=== PATIENT | male | born 1940 | race Caucasian/White ===

== ENCOUNTER 2024-12-18 09:16 | Inpatient (IN) | payer MEDICARE, SELFPAY ==
[2024-12-18] VITALS (34 sets, daily range): BP systolic 103–165; BP diastolic 78–109; PULSE 69–144; RESP 17–53; TEMP 35.7–37.3; O2SAT 82–98; BMI 26.6
[2024-12-18] MEDS: IPRAT-ALBUT 0.5-2.5 MG/3 ML NEB 1 NEB IH (09:40)
--- NOTE | 2024-12-18 09:52 | CRLHL7_ITS ---
For Patients: As a result of the Century Cures Act, medical imaging exams and procedure reports are released immediately into your electronic medical record. You may view this report before your referring provider. If you have questions, please contact your health care provider. INDICATION: Shortness of breath. Right-sided pain. TECHNIQUE: CT chest pulmonary angiogram acquired with 95 cc of Isovue 370 IV contrast. COMPARISON: CT chest, abdomen and pelvis 06/30/2019. FINDINGS: Within the limitations of motion artifact, there is no evidence of pulmonary embolus. Distal segmental and subsegmental pulmonary emboli not excluded based on this exam. Aortic atherosclerosis. Thoracic vasculature as imaged is otherwise unremarkable. Cardiomegaly and coronary artery calcifications, as before. New small right pleural effusion. No left pleural effusion or pericardial effusion. No pathologic lymphadenopathy. Soft tissues of the thoracic wall are unremarkable. No pneumothorax. Lower lobe bronchial wall thickening is similar. Emphysema with biapical pleural parenchymal scarring, as before. Bibasilar opacities, right greater than left have increased. Nodular opacities in the left lower lobar unchanged and likely infectious/inflammatory in nature. Stable right renal cyst. Visualized upper abdomen is otherwise unremarkable. Degenerative changes of the spine. No acute or suspicious osseous abnormality. IMPRESSION: 1. Within the limitations of motion artifact, there is no evidence of pulmonary embolus. Distal segmental and subsegmental pulmonary emboli not excluded based on this exam. 2. Bibasilar atelectasis or airspace disease, right greater than left has increased. New small right pleural effusion. 3. Emphysema with biapical pleural-parenchymal scarring, as before. Dictated by Kalyan Welsh MD @ 12/18/2024 11:53:56 AM Please note that all CT scans at this facility use dose modulation, iterative reconstruction, and/or weight-based dosing when appropriate to reduce radiation dose to as low as reasonably achievable. Dictated by: Kalyan Welsh MD @ 12/18/2024 11:54:13 (Electronically Signed)
--- NOTE | 2024-12-18 09:52 | CRLHL7_ITS ---
For Patients: As a result of the Century Cures Act, medical imaging exams and procedure reports are released immediately into your electronic medical record. You may view this report before your referring provider. If you have questions, please contact your health care provider. INDICATION: Shortness of breath. Right-sided abdominal pain. TECHNIQUE: CT abdomen and pelvis acquired with 95 cc of Isovue 370 IV contrast. COMPARISON: CT chest, abdomen and pelvis 06/30/2019. CT chest same day. FINDINGS: Lower chest: Please refer to chest CT same day. Liver: Unremarkable. Spleen: Unremarkable. Pancreas: Unremarkable. Gallbladder and bile ducts: No calcified stones or biliary ductal dilatation. Kidneys: Bilateral cysts have not significantly changed. No urolithiasis, hydronephrosis or suspicious lesion. Adrenal glands: Unremarkable. GI tract: Distal colonic diverticulosis without evidence of acute diverticulitis. GI tract is otherwise unremarkable. No free air or free fluid. Lymph nodes: No pathologic lymphadenopathy. Vascular structures: Atherosclerotic disease. No abdominal aortic aneurysm. Pelvic Organs: Unremarkable. Bones: No acute or suspicious osseous abnormality. Degenerative changes spine and pelvis. IMPRESSION: No acute intra-abdominal or pelvic abnormality. Dictated by Kalyan Welsh MD @ 12/18/2024 12:02:21 PM Please note that all CT scans at this facility use dose modulation, iterative reconstruction, and/or weight-based dosing when appropriate to reduce radiation dose to as low as reasonably achievable. Dictated by: Kalyan Welsh MD @ 12/18/2024 12:02:50 (Electronically Signed)
--- NOTE | 2024-12-18 10:08 | ED_ITS ---
HPI - SOB/Dyspnea General Date Seen: 12/18/24 Chief Complaint: Shortness of Breath/Dyspnea Stated Complaint: Shortness of breath, R side pain Time Seen by Provider: 12/18/24 09:29 Source: patient Mode of arrival: wheelchair Limitations: no limitations History of Present Illness HPI Narrative: Patient is an 83-year-old male presenting to the emergency department for shortness of breath and right-sided pain going from his right upper quadrant up to his right shoulder. He states he woke up with these symptoms I a.m.. Denies ever having symptoms like this before. States they have been consistent since then with no improvements. Did eat breakfast this morning without any issues. States he is completely asymptomatic yesterday. Feels like his most comfortable position is sitting up with his hands and his knees. Symptoms feel worse with lying back. Has not noticed any lower extremity swelling. Quit smoking over 20 years ago. Denies fevers, chills, sick contacts, chest pain, headache, lightheadedness, dizziness, diarrhea, constipation. No previous abdominal surgeries. No history of gallbladder disease. Has never had a blood clot before. Last saw his primary care provider around 2 years ago. Has never been started any medications other than occasional L appear in all when he gets gout in his right hand. Does currently have swelling and pain to his right hand which she states is better at this time compared to this morning but it does seem consistent with his previous gout. No further swelling or pain to the rest of his upper extremity. Related Data Home Medications ?Medication ?Instructions ?Recorded ?Confirmed No Known Home Medications 12/18/24 12/18/24 Allergies Allergy/AdvReac Type Severity Reaction Status Date / Time No Known Drug Allergies Allergy Verified 12/18/24 09:25 Review of Systems Status of ROS: Reports: 10 or more systems reviewed and unremarkable except as noted in History and below Exam Narrative: Exam Narrative: Const: Well-nourished, Well-developed, in moderate distress Eyes: PERRL, no conjunctival injection, and symmetrical lids HENT: Atraumatic external nose and ears. Moist mucous membranes. Neck: Symmetric, trachea midline, No thyromegaly. CVS: Tachycardia, No murmurs or gallops. Peripheral pulses 2+ and equal in all extremities RESP: Increased respiratory effort. Clear to auscultation bilaterally. GI: Nontender/Nondistended, No rebound or guarding. MSK: Swelling noted to left hand worse around the of 2nd MCP joint, Normal Active ROM Skin: Warm, Dry. No rashes or lesions. Neuro: Normal Muscle tone, No focal neurological deficits. Psych: Awake, Alert, & Oriented x3. Appropriate mood and affect. Const: Vital Signs, click to edit/add: Vital Signs - 24 hr 12/18/24 09:21 12/18/24 09:44 12/18/24 09:45 Temperature 98.4 F Pulse Rate 122 H 115 H Pulse Rate [Pulse Oximeter] 129 H Respiratory Rate 32 H Blood Pressure Blood Pressure [Ri ght Upper Arm] 118/84 Pulse Oximetry 98 91 84 L Oxygen Delivery Me thod Room Air Oxygen Flow Rate 12/18/24 10:00 12/18/24 10:15 12/18/24 10:24 Temperature Pulse Rate 117 H 114 H 114 H Pulse Rate [Pulse Oximeter] Respiratory Rate 28 H Blood Pressure 110/85 Blood Pressure [Ri ght Upper Arm] Pulse Oximetry 94 88 83 L Oxygen Delivery Me thod Oxygen Flow Rate 12/18/24 10:30 12/18/24 10:32 12/18/24 10:45 Temperature Pulse Rate 144 H 127 H 131 H Pulse Rate [Pulse Oximeter] Respiratory Rate 18 22 36 H Blood Pressure 153/97 H Blood Pressure [Ri ght Upper Arm] Pulse Oximetry 82 L 89 85 L Oxygen Delivery Me thod Oxygen Flow Rate 12/18/24 11:00 12/18/24 11:02 12/18/24 11:28 Temperature Pulse Rate 126 H 110 H Pulse Rate [Pulse Oximeter] Respiratory Rate 32 H 30 H 38 H Blood Pressure 139/97 H Blood Pressure [Ri ght Upper Arm] Pulse Oximetry 93 91 84 L Oxygen Delivery Me thod Oxygen Flow Rate 12/18/24 11:30 12/18/24 11:33 12/18/24 11:45 Temperature Pulse Rate 123 H 124 H 120 H Pulse Rate [Pulse Oximeter] Respiratory Rate 53 H 31 H 46 H Blood Pressure 165/96 H Blood Pressure [Ri ght Upper Arm] Pulse Oximetry 88 91 92 Oxygen Delivery Me thod Oxygen Flow Rate 12/18/24 12:01 12/18/24 12:02 Temperature Pulse Rate Pulse Rate [Pulse Oximeter] Respiratory Rate 26 H 29 H Blood Pressure 137/89 Blood Pressure [Ri ght Upper Arm] Pulse Oximetry 91 Oxygen Delivery Me thod Nasal Cannula Oxygen Flow Rate 3 Course Vital Signs Vital signs: Initial Vital Signs Temperature 98.4 F 12/18/24 09:21 Temperature Source Temporal Artery Scan 12/18/24 09:21 Pulse Rate 129 H 12/18/24 09:21 Respiratory Rate 32 H 12/18/24 09:21 Blood Pressure 118/84 12/18/24 09:21 Blood Pressure Mean 95 12/18/24 09:21 Blood Pressure Position Sitting 12/18/24 09:21 Pulse Oximetry 98 12/18/24 09:21 Oxygen Delivery Method Room Air 12/18/24 09:21 Vital Signs Temperature 98.4 F 12/18/24 09:21 Pulse Rate 129 H 12/18/24 09:21 Respiratory Rate 32 H 12/18/24 09:21 Blood Pressure 118/84 12/18/24 09:21 Pulse Oximetry 98 12/18/24 09:21 Oxygen Delivery Method Room Air 12/18/24 09:21 Temperature 98.4 F 12/18/24 09:21 Pulse Rate 120 H 12/18/24 11:45 Respiratory Rate 29 H 12/18/24 12:02 Blood Pressure 137/89 12/18/24 12:01 Pulse Oximetry 91 12/18/24 12:01 Oxygen Delivery Method Nasal Cannula 12/18/24 12:01 Oxygen Flow Rate 3 12/18/24 12:01 Medications Administered Medications: Generic Name Dose Route Start Last Admin Trade Name Freq PRN Reason Stop Dose Admin Sodium Chloride 500 mls @ 500 mls/hr 12/18/24 11:57 12/18/24 12:10 0.9 % Sodium Chloride 500 Ml IV 12/18/24 12:56 500 mls/hr .Q1H ONE Administration Discontinued Medications Generic Name Dose Route Start Last Admin Trade Name Freq PRN Reason Stop Dose Admin Albuterol/Ipratropium 1 neb 12/18/24 10:26 12/18/24 09:40 Iprat-Albut 0.5-2.5 Mg/3 Ml Neb IH 12/18/24 10:27 1 neb ONCE ONE Administration Azithromycin 500 mg 12/18/24 11:56 12/18/24 12:12 Azithromycin 250 Mg Tablet PO 12/18/24 11:57 500 mg ONCE ONE Administration Ceftriaxone Sodium 1 gm/ 100 mls @ 200 mls/hr 12/18/24 11:56 12/18/24 12:09 Sodium Chloride IVPB 12/18/24 11:57 200 mls/hr ONCE ONE Administration Morphine Sulfate 4 mg 12/18/24 10:51 12/18/24 10:58 Morphine 4 Mg/Ml Inj IVP 12/18/24 10:52 4 mg ONCE ONE Administration MDM - SOB/Dyspnea MDM Narrative Medical decision making narrative: Patient is an 83-year-old male presenting for shortness of breath. The differential diagnosis of shortness of breath is broad and includes common etiologies such as COPD, asthma, pneumonia, viral syndrome, etc. More serious etiologies considered include PE, CHF, coronary artery disease, pneumothorax, aortic dissection, aortic aneurysm. Will do EKG and troponin look for signs of shortness ACS. Will straight to a CTA to look for signs of PE. This will also help look for signs of pneumonia. BNP ordered to look for signs of heart failure. Is not having any pain so aortic dissection seems less likely. He is normotensive and my concern for aortic aneurysm is lower but not ruled out. Will order COVID/flu/RSV for possible signs of viral syndrome. Of the patella also ordered CBC. With his tachycardia and tachypnea order lactate and blood cultures. He is also having this right upper quadrant pain. This could be related to a pneumonia causing the pain versus gallbladder and liver disease. Will do CT scan for better evaluation. He did get a DuoNeb by the nursing staff prior to my evaluation. He feels like this helped EKG appears to show AFib but heart to definitively say as it is currently ordered for him to lay still and we cannot get a clear EKG. I am hesitant to cardiovert this patient as I do not to sedate someone was discharged her. Also hold off on any heart rate controlling tell I can definitively say what is causing his tachycardia. Lab work returns with lactate of 2.1 and a white count of 19.93. This is neutrophil predominant. CRP is elevated at 18.9. His direct bilirubin is slightly elevated otherwise no other concerning abnormality seen in lab work. Troponin within normal limits and considering symptoms have been going on for almost 10 hours now I do not believe repeat troponin is necessary. Patient is having difficulty lying flat so I did give him some morphine to see if this will help with his air hunger. We were able to get him to CT. CT of the abdomen pelvis reviewed by myself and the radiologist shows no concerning abnormalities. CTA reviewed myself the radiologist shows possible pneumonia. He also has a new pleural effusion. This could all just be related to fluid in his lungs for a cannot definitively rule out pneumonia at this time. No signs of blood clot but the smaller segments were difficult to see due to motion artifact. Either way he has no large blood clots that likely be causing the symptoms. Patient given Rocephin and azithromycin for possible pneumonia. I only gave him a 500 mL bolus of fluid. He meets sepsis criteria but I am concerned he could be fluid overloaded as he also has his new fluid in his lungs and elevated BNP consistent with heart failure. He is looking much more comfortable at this time. Is able speak in full sentences and is satting 93-94% on 3 L. at this time I do feel he is comfortable safe to stay and our hospital and the hospitalist accept him for admission and agrees with this plan. She did ask that I order dose of Lasix and 10 mg of diltiazem. He is agreeable to this plan. Of note he also feels her gout to his right hand that he states is consistent with his previous gout episodes. States it is improved compared to earlier today. Usually takes allopurinol for this. The hospitalist is aware Lab Data Labs: Lab Results 12/18/24 12/18/24 12/18/24 Range/Units 09:52 10:23 10:36 WBC 19.93 H (4.50-11.00) K/uL RBC 4.51 (4.30-5.90) m/uL Hgb 14.4 (13.5-17.5) gm/dL Hct 44.4 (37.0-53.0) % MCV 98 (80-100) fL MCH 32 (26-34) pg MCHC 32 (32-36) gm/dL RDW Coeff of Pratik 12.7 (11.5-15.5) % Plt Count 309 (140-440) K/uL Neut % (Auto) 89.7 H (42.0-72.0) % Lymph % (Auto) 5.3 L (20-44) % Mathews % (Auto) 2.8 (0.0-11.0) % Eos % (Auto) 0.0 (0.0-7.0) % Baso % (Auto) 0.1 (0.0-3.0) % Neut # (Auto) 17.90 H (1.7-7.0) K/uL Lymph # (Auto) 1.10 (0.90-2.90) K/uL Mathews # (Auto) 0.60 (0.00-0.90) K/UL Eos # (Auto) 0.00 (0.00-0.50) K/uL Baso # (Auto) 0.00 (0.00-0.30) K/uL Abs Immat Gran (auto) 0.40 H (0.00-0.30) K/uL Imm/Tot Granulo (auto) 2.1 % Sodium 138 (135-149) mmol/L Potassium 3.5 L (3.6-5.1) mmol/L Chloride 103 (96-114) mmol/L Carbon Dioxide 25 (20-32) mmol/L Anion Gap 10 (7-15) mEq/L BUN 18 (7-30) mg/dL Creatinine 0.9 (0.5-1.5) mg/dL Estimated GFR 85 ml/min Glucose 152 H (60-115) mg/dL Lactate 2.1 H (0.5-1.9) mmol/L Calcium 8.9 (8.4-10.6) mg/dL Magnesium 2.0 (1.5-2.6) mg/dL Total Bilirubin 1.8 H (0.1-1.5) mg/dL Direct Bilirubin 0.8 H (0.0-0.5) mg/dL AST 35 (12-35) U/L ALT 25 (4-50) U/L Alkaline Phosphatase 104 (40-150) U/L Troponin I 0.01 (0.01-0.04) ng/mL C-Reactive Protein 18.9 H (0.5-1.0) mg/dL NT-Pro-B Natriuret Pep 2920 pg/mL Total Protein 8.1 (6.0-8.3) g/dL Albumin 3.9 (3.3-5.0) g/dL SARS-CoV-2 (PCR) Negative SARS-CoV-2 (Negative) Influenza Type A (PCR) Negative PCR FLU A (Negative) Influenza Type B (PCR) Negative PCR FLU B (Negative) Lab Acknowledgement Test Added POC Creatinine 1.0 (0.6-1.3) mg/dl 12/18/24 Range/Units 11:08 WBC (4.50-11.00) K/uL RBC (4.30-5.90) m/uL Hgb (13.5-17.5) gm/dL Hct (37.0-53.0) % MCV (80-100) fL MCH (26-34) pg MCHC (32-36) gm/dL RDW Coeff of Pratik (11.5-15.5) % Plt Count (140-440) K/uL Neut % (Auto) (42.0-72.0) % Lymph % (Auto) (20-44) % Mathews % (Auto) (0.0-11.0) % Eos % (Auto) (0.0-7.0) % Baso % (Auto) (0.0-3.0) % Neut # (Auto) (1.7-7.0) K/uL Lymph # (Auto) (0.90-2.90) K/uL Mathews # (Auto) (0.00-0.90) K/UL Eos # (Auto) (0.00-0.50) K/uL Baso # (Auto) (0.00-0.30) K/uL Abs Immat Gran (auto) (0.00-0.30) K/uL Imm/Tot Granulo (auto) % Sodium (135-149) mmol/L Potassium (3.6-5.1) mmol/L Chloride (96-114) mmol/L Carbon Dioxide (20-32) mmol/L Anion Gap (7-15) mEq/L BUN (7-30) mg/dL Creatinine (0.5-1.5) mg/dL Estimated GFR ml/min Glucose (60-115) mg/dL Lactate (0.5-1.9) mmol/L Calcium (8.4-10.6) mg/dL Magnesium (1.5-2.6) mg/dL Total Bilirubin (0.1-1.5) mg/dL Direct Bilirubin (0.0-0.5) mg/dL AST (12-35) U/L ALT (4-50) U/L Alkaline Phosphatase (40-150) U/L Troponin I (0.01-0.04) ng/mL C-Reactive Protein (0.5-1.0) mg/dL NT-Pro-B Natriuret Pep pg/mL Total Protein (6.0-8.3) g/dL Albumin (3.3-5.0) g/dL SARS-CoV-2 (PCR) (Negative) Influenza Type A (PCR) (Negative) Influenza Type B (PCR) (Negative) Lab Acknowledgement Test Added POC Creatinine (0.6-1.3) mg/dl Imaging Data CTA chest: Attestation: I have reviewed the pertinent imaging results. Radiologist's impression: 1. Within the limitations of motion artifact, there is no evidence of pulmonary embolus. Distal segmental and subsegmental pulmonary emboli not excluded based on this exam. 2. Bibasilar atelectasis or airspace disease, right greater than left has increased. New small right pleural effusion. 3. Emphysema with biapical pleural-parenchymal scarring, as before. Dictated by Kalyan Welsh MD @ 12/18/2024 11:53:56 AM Please note that all CT scans at this facility use dose modulation, iterative reconstruction, and/or weight-based dosing when appropriate to reduce radiation dose to as low as reasonably achievable. Dictated by: Kalyan Welsh MD @ 12/18/2024 11:54:13 CT scan abdomen and pelvis: Attestation: I have reviewed the pertinent imaging results. Radiologist's impression: No acute intra-abdominal or pelvic abnormality. Dictated by Kalyan Welsh MD @ 12/18/2024 12:02:21 PM Please note that all CT scans at this facility use dose modulation, iterative reconstruction, and/or weight-based dosing when appropriate to reduce radiation dose to as low as reasonably achievable. Dictated by: Kalyan Welsh MD @ 12/18/2024 12:02:50 ECG Data Attestation: I personally reviewed and interpreted this ECG as follows: Prior ECG tracings: not available for review Interpretation: AFib with RVR rate of 111 beats per minute, PVC seen, right bundle-branch block, normal intervals, normal axis, no ST or T-wave abnormalities. Critical Care Time Critical Care Time Critical Care Time: Yes Attestation: The patient required my highest level preparedness to intervene emergently and I personally spent this critical care time directly and personally managing the patient. This critical care time included: Obtaining a history; Examining the patient; Pulse oximetry; Ordering and reviewing of studies; Arranging urgent treatment with development of a management plan; Evaluation of patients response to treatment; Frequent reassessment discussions with other providers. This critical care time was performed to assess and manage the high probability of imminent life-threatening deterioration that could result in multiorgan failure. It was exclusive of separate billable procedures and treating other patients and teaching time. Total Critical Care Time in Minutes: 42 Discharge Plan Discharge Prescriptions: No Action No Known Home Medications Follow Up/Referrals: Trevon Al MD [Staff Physician] -
[2024-12-18 10:34] LABS: Lactate Sepsis w/Reflex* 2.1 mmol/L (0.5-1.9)
[2024-12-18 10:36] LABS: Basophils Percent Auto 0.1 % (0.0-3.0); Hematocrit 44.4 % (37.0-53.0); Hemoglobin* 14.4 gm/dL (13.5-17.5); Immature Granulocytes Pct Auto 2.1 %; Lymphocytes Percent Auto 5.3 % (20-44); Mean Corpuscular HGB Conc 32 gm/dL (32-36); Mean Corpuscular Hemoglobin 32 pg (26-34); Mean Corpuscular Volume 98 fL (80-100); Monocytes Percent Auto 2.8 % (0.0-11.0); Neutrophils Percent Auto 89.7 % (42.0-72.0); Platelet Count* 309 K/uL (140-440); RDW Coefficient of Variation % 12.7 % (11.5-15.5); Red Blood Count 4.51 m/uL (4.30-5.90); White Blood Count* 19.93 K/uL (4.50-11.00)
[2024-12-18 10:43] LABS: Slide Review Reflex No
[2024-12-18 10:49] LABS: Albumin* 3.9 g/dL (3.3-5.0); Chloride* 103 mmol/L (96-114)
[2024-12-18 10:50] LABS: Potassium* 3.5 mmol/L (3.6-5.1); Sodium* 138 mmol/L (135-149)
[2024-12-18 10:52] LABS: Alkaline Phosphatase* 104 U/L (40-150); Anion Gap 10 mEq/L (7-15); Aspartate Amino Transferase* 35 U/L (12-35); Bilirubin Total* 1.8 mg/dL (0.1-1.5); Blood Urea Nitrogen* 18 mg/dL (7-30); Carbon Dioxide* 25 mmol/L (20-32); Creatinine* 0.9 mg/dL (0.5-1.5); Estimated Glomerular Filt Rate 85 ml/min; Total Protein* 8.1 g/dL (6.0-8.3)
[2024-12-18 10:53] LABS: Alanine Aminotransferase* 25 U/L (4-50); Calcium* 8.9 mg/dL (8.4-10.6); Glucose* 152 mg/dL (60-115)
[2024-12-18] MEDS: MORPHINE 4 MG/ML INJ IVP (10:58)
[2024-12-18 11:03] LABS: Troponin I* 0.01 ng/mL (0.01-0.04)
[2024-12-18 11:05] LABS: NT Pro B Type NatriureticPept* 2920 pg/mL
[2024-12-18 11:20] LABS: C Reactive Protein* 18.9 mg/dL (0.5-1.0)
[2024-12-18 11:25] LABS: PCR FLU A Negative PCR FLU A (Negative); PCR FLU B Negative PCR FLU B (Negative); SARS PCR* Negative SARS-CoV-2 (Negative)
[2024-12-18] MEDS: cefTRIAXone 1 GM in 0.9 % SODIUM CHLORIDE Mini-bag 100 ML IVPB (12:09)
[2024-12-18] MEDS: 0.9 % SODIUM CHLORIDE 500 ML 500 ML IV (12:10)
[2024-12-18] MEDS: AZITHROMYCIN 250 MG TABLET 500 MG PO (12:12)
[2024-12-18 12:13] LABS: Bilirubin Direct* 0.8 mg/dL (0.0-0.5)
[2024-12-18] MEDS: FUROSEMIDE 10 MG/ML inj 40 MG IVP ×2 (12:41→20:02)
[2024-12-18] MEDS: MAGNESIUM IV 2 GM/50 ML PIGGYBACK IVPB (12:41)
[2024-12-18] MEDS: dilTIAZem 5 MG/ML inj 10 MG IVP (12:41)
[2024-12-18 12:47] LABS: Lactate Sepsis 2 Hour 2.6 mmol/L (0.5-1.9)
--- NOTE | 2024-12-18 13:24 | ED.NURSE ---
Pt report given to braxton SAEED. Pt to room CCU3.
--- NOTE | 2024-12-18 13:38 | PM.IMHP1 ---
Hospitalist- H&P: HPI History of Present Illness Date Seen: 12/18/24 Chief complaint: Shortness of breath Narrative: Celso Dumas is a 83 year old male who presented to the emergency room this morning for acute onset of shortness of breath. Was in his usual state of health last night; woke up this morning and could not breathe, especially when laying flat. Also has noted discomfort in his right side up into his shoulder for the past 2-3 days, worse with movement. No nausea or vomiting; has been tolerating po intake. ER course and findings: - hypoxic upon arrival to the emergency room; noted to be as low as 82% on RA, placed on supplemental oxygen - new onset AFib with RVR (pulse as high as 140s), given diltiazem IV x1 with improvement in heart rate to 90s - WBC of 19, afebrile. Bibasilar atelectasis R>L with small R pleural effusion. Given Ceftriaxone and Azithromycin - lactate 2.1; initially given bolus of 500mL NS, then given 40mg of Lasix for concern of fluid overload/CHF - troponin negative, BNP [address] has previously seen Dr. Al for Primary care, hasn't had f/u for a few years (primarily would see him for gout flare ups). No daily medications. Occasionally takes an ASA. Review of Systems Narrative: - R hand edema/erythema/discomfort - history of gout, current symptoms similar [facility] Medical History (Updated 12/18/24 @ 14:49 by Krystle Spencer MD) Gout ?M10.9 - Gout, unspecified (ICD-10) Surgical History (Updated 12/18/24 @ 14:17 by Krystle Spencer MD) History of cataract surgery ?Z98.49 - Cataract extraction status, unspecified eye (ICD-10) Social History (Updated 12/18/24 @ 14:17 by Krystle Spencer MD) Narrative: Lives alone in [place], in summer. Four adult daughters, Pascale would be medical decision maker if needed. Remote history of smoking, no alcohol use. Requests full code status. Smoking Status: Former smoker Do you use any of these nicotine containing products: None How often do you have a drink containing alcohol: never How often do you have six or more drinks on one occasion: Never AUDIT-C Alcohol total score: 0 Non-prescribed substance use: denies use service: No Meds Home Medications and Allergies Home Medications ?Medication ?Instructions ?Recorded ?Confirmed ?Type No Known Home Medications 12/18/24 12/18/24 History Allergies Allergy/AdvReac Type Severity Reaction Status Date / Time No Known Drug Allergies Allergy Verified 12/18/24 14:23 Exam Narrative: Exam Narrative: GEN: Alert and oriented, 3-4 word dyspnea, appears to have respiratory distress HEENT: EOMIs bilaterally, no scleral icterus CV: Irregular rhythm with rate 90-100 R: No wheezing, coarse rales right base Ext: 2+ edema BLE, + edema of R hand, mild discomfort with flexion/extension Skin: No concerning skin lesions or rashes on exposed skin Neuro: No focal deficits on limited exam Psych: Appropriate Const: Vital Signs, click to edit/add: Vital Signs - 24 hr 12/18/24 09:21 12/18/24 09:44 12/18/24 09:45 Temperature 98.4 F Pulse Rate 122 H 115 H Pulse Rate [Pulse Oximeter] 129 H Respiratory Rate 32 H Blood Pressure Blood Pressure [Ri ght Upper Arm] 118/84 Pulse Oximetry 98 91 84 L Oxygen Delivery Me thod Room Air Oxygen Flow Rate 12/18/24 10:00 12/18/24 10:15 12/18/24 10:24 Temperature Pulse Rate 117 H 114 H 114 H Pulse Rate [Pulse Oximeter] Respiratory Rate 28 H Blood Pressure 110/85 Blood Pressure [Ri ght Upper Arm] Pulse Oximetry 94 88 83 L Oxygen Delivery Me thod Oxygen Flow Rate 12/18/24 10:30 12/18/24 10:32 12/18/24 10:45 Temperature Pulse Rate 144 H 127 H 131 H Pulse Rate [Pulse Oximeter] Respiratory Rate 18 22 36 H Blood Pressure 153/97 H Blood Pressure [Ri ght Upper Arm] Pulse Oximetry 82 L 89 85 L Oxygen Delivery Me thod Oxygen Flow Rate 12/18/24 11:00 12/18/24 11:02 12/18/24 11:28 Temperature Pulse Rate 126 H 110 H Pulse Rate [Pulse Oximeter] Respiratory Rate 32 H 30 H 38 H Blood Pressure 139/97 H Blood Pressure [Ri ght Upper Arm] Pulse Oximetry 93 91 84 L Oxygen Delivery Me thod Oxygen Flow Rate 12/18/24 11:30 12/18/24 11:33 12/18/24 11:45 Temperature Pulse Rate 123 H 124 H 120 H Pulse Rate [Pulse Oximeter] Respiratory Rate 53 H 31 H 46 H Blood Pressure 165/96 H Blood Pressure [Ri ght Upper Arm] Pulse Oximetry 88 91 92 Oxygen Delivery Me thod Oxygen Flow Rate 12/18/24 12:01 12/18/24 12:02 Temperature Pulse Rate Pulse Rate [Pulse Oximeter] Respiratory Rate 26 H 29 H Blood Pressure 137/89 Blood Pressure [Ri ght Upper Arm] Pulse Oximetry 91 Oxygen Delivery Me thod Nasal Cannula Oxygen Flow Rate 3 Hospitalist - H&P: Result Labs Labs: Short CBC 12/18/24 Range/Units 10:23 WBC 19.93 H (4.50-11.00) K/uL Hgb 14.4 (13.5-17.5) gm/dL Hct 44.4 (37.0-53.0) % Plt Count 309 (140-440) K/uL BMP 12/18/24 10:23 Sodium 138 Potassium 3.5 L Chloride 103 Carbon Dioxide 25 BUN 18 Creatinine 0.9 Glucose 152 H Calcium 8.9 Cardiac Enzymes 12/18/24 Range/Units 10:23 Troponin I 0.01 (0.01-0.04) ng/mL Liver Function 12/18/24 Range/Units 10:23 Total Bilirubin 1.8 H (0.1-1.5) mg/dL Direct Bilirubin 0.8 H (0.0-0.5) mg/dL AST 35 (12-35) U/L ALT 25 (4-50) U/L Alkaline Phosphatase 104 (40-150) U/L Albumin 3.9 (3.3-5.0) g/dL Assessment and Plan Assessment and plan (1) Acute hypoxic respiratory failure: Problem comment: - multifactorial: presumed CHF, a fib with RVR, CAP, no history of COPD and no wheezing - RT following - supplemental oxygen, rate control, aggressive diuresis, TTE, antibiotics - Status: Acute (2) Atrial fibrillation with RVR: Problem comment: - new onset 12/18/24 - rate improved with one dose of IV Diltiazem in ED - will initate po Metoprolol, Eliquis - consider gtt of antiarrythmic if above treatments ineffective - TTE 12/18 Status: Acute (3) Community acquired pneumonia: Problem comment: - bibasilar, R>L on CV 12/18 - negative triple swab, Ceftriaxone and Azithromycin (12/18) - elevated lactate, blood culture pending Status: Acute (4) Gout: Problem comment: - appears to have a flare in R hand - treat with colchicine and Tylenol, topical NSAIDs Status: Acute Plan - per above (aggressive diuresis, abx, rate control) - Eliquis for ppx - CCU status given severe hypoxia (requiring high flow upon arrival to the floor) - daughters updated bedside, questions answered
[2024-12-18 14:48] LABS: Lab Add On Test ADDED
[2024-12-18] MEDS: POTASSIUM BICARB 25 MEQ EFFERVESCENT TAB PO (15:15)
[2024-12-18] MEDS: PERFLUTREN LIPID MICROSPHERES 2 ML VIAL IVP (15:16)
[2024-12-18] MEDS: METOPROLOL TARTRATE 50 MG TABLET PO (15:16)
[2024-12-18 15:39] LABS: Thyroid Stimulating Hormone* 0.853 uIU/mL (0.270-4.20)
--- NOTE | 2024-12-18 15:56 | RESP.RT ---
Pt improved after placement on HFNC. RR down to 18, SPO2 staying above 90% Pt wanted to eat a large meal, deferring at this time. Wean when able.
[2024-12-18 16:18] LABS: Appearance Urine Clear (Clear); Bilirubin Urine Negative (Negative); Blood Urine Negative (Negative); Color Urine Yellow (Yellow); Glucose Urine Negative (Negative); Ketones Urine Negative (Negative); Leukocyte Esterase Urine Negative (Negative); Nitrite Urine Negative (Negative); Protein Urine Negative (Negative); Specific Gravity Urine 1.015 (1.000-1.030); Urobilinogen Urine 0.2 (0.2-1.0); pH Urine 6.5 (5.0-8.5)
[2024-12-18 16:39] LABS: RBC Urine 0-2 (0-2); WBC Urine 0-2 (0-5)
--- NOTE | 2024-12-18 18:13 | PC.NURSE ---
Shift Summary 15-19: Patient pleasant and cooperative. UP with one assist and gait belt to stand and use urinal. Using call light appropriately. Denies pain. Denies SOB however patients RR 26-28 breaths/min. Hif[place] @ 30L/55%/36 degrees. Informed patient that he should be having small frequent meals as apposed to 3 large meals/day to avoid pressure on diaphragm. Hiflow removed for meals and patient placed on 6L/NC.
[2024-12-18] MEDS: SODIUM CHLORIDE 0.9 % (FLUSH) 10 ML SYRINGE 5 ML IVF (20:02)
[2024-12-18] MEDS: POTASSIUM CHLORIDE 10 MEQ CAPSULE ER 20 MEQ PO (20:02)
[2024-12-18] MEDS: APIXABAN 5 MG TABLET PO (20:53)
[2024-12-19] VITALS (23 sets, daily range): BP systolic 101–135; BP diastolic 62–85; PULSE 84–98; RESP 18–28; TEMP 30.9–37.1; O2SAT 90–96
[2024-12-19] MEDS: FUROSEMIDE 10 MG/ML inj 40 MG IVP ×3 (04:56→20:42)
[2024-12-19] MEDS: SODIUM CHLORIDE 0.9 % (FLUSH) 10 ML SYRINGE 5 ML IVF ×4 (04:57→20:42)
--- NOTE | 2024-12-19 06:44 | PC.NURSE ---
[id number]: Patient pleasant and cooperative. A&Ox3. Tolerating HFNC 35L 55-60% to keep O2 sats>90%. Respirations 24-28. SOB w/conversing and activity. Desats to 83-85 with movement but back up to >90 within 1-2 minutes. Intermittent dry cough. Rates pain associated with coughing 2-6/10 but getting better. Using IS. Up to BSC frequently to urinate d/t IV Lasix Q8H. Afebrile. Updated Pascale (daughter) x2 via telephone during shift.
[2024-12-19 06:51] LABS: HCO3 VBG 29 mmol/L (21-28); PCO2 VBG 43 mmHG (40-50); PO2 VBG < 30.1 mmHG (25-47); pH VBG 7.437 (7.32-7.43)
[2024-12-19 06:55] LABS: Hematocrit 43.6 % (37.0-53.0); Hemoglobin* 14.2 gm/dL (13.5-17.5); Immature Granulocytes Pct Auto 0.8 %; Lymphocytes Percent Auto 4.1 % (20-44); Mean Corpuscular HGB Conc 33 gm/dL (32-36); Mean Corpuscular Hemoglobin 32 pg (26-34); Mean Corpuscular Volume 98 fL (80-100); Monocytes Percent Auto 3.4 % (0.0-11.0); Neutrophils Percent Auto 91.7 % (42.0-72.0); Platelet Count* 309 K/uL (140-440); RDW Coefficient of Variation % 12.9 % (11.5-15.5); Red Blood Count 4.44 m/uL (4.30-5.90)
--- NOTE | 2024-12-19 07:09 | PM.IMPN1 ---
Progress Note: A&P Assessment and plan (1) Acute hypoxic respiratory failure: Problem details: - multifactorial: presumed CHF, a fib with RVR, CAP, no wheezing (no known history of COPD, but CT on 12/18 did exhibit emphysematous changes) - RT following - supplemental oxygen, rate control, aggressive diuresis, TTE, Aerobika, antibiotics (Ceftriaxone and Azithro 12/18, added Vancomycin 12/19) Status: Acute (2) Pleural effusion: Problem details: - likely source of R chest wall pain upon admission - pending clinical course, consider thoracentesis Status: Acute (3) Atrial fibrillation with RVR: Problem details: - new onset 12/18/24 - rate improved with one dose of IV Diltiazem in ED - initiated po Eliquis and Metoprolol 12/18 - TTE 12/18 with results below: Final Impressions: 1. Technically limited exam. 2. Normal LV size, normal wall thickness, normal global systolic function with an estimated EF of 55 - 60%. 3. Right ventricular cavity size is moderately enlarged, global systolic RV function is borderline reduced. 4. Severe biatrial enlargement. 5. No significant valve disease detected. 6. Borderline increased estimated pulmonary pressures by tricuspid regurgitation velocity and right atrial pressure (37 mmHg including RAP of 3 mmHg). Status: Acute (4) Community acquired pneumonia: Problem details: - bibasilar, R>L on CV 12/18 - negative triple swab, Ceftriaxone and Azithromycin (12/18), + Vancomycin (12/19) - blood culture NGTD Status: Acute (5) Gout: Problem details: - history of this - on admission, concern for gout flare in R hand, but improved on hospital day 1 without any anti-inflammatories (? infectious) - no further edema or erythema, no skin breakdown Status: Acute (6) Weakness: Problem details: - multifactorial from issues above, therapies following, blood cultures currently NGTD Status: Acute Plan - per above - Eliquis for ppx - daughter updated at bedside, questions answered Subjective Date Seen: 12/19/24 Interval history: Aníbal was admitted to the hospital 12/18 for acute hypoxic respiratory failure in the setting of new a fib/RVR. HR was as high as 140s in the ER. Also noted to have bibasilar atelectasis vs airspace disease, R>L (treating for CAP) and a R pleural effusion. RT following, was initially placed on high flow oxygen, intermittently tolerating 6L per NC. Also on IV Furosemide Q8, Metoprolol for rate control, Eliquis for prophylaxis. TTE 12/18 exhibited normal LV size and function, R ventricular enlargement, TR, and borderline increased pulmonary pressures. This morning, Aníbal's WBC has increased from 20 -> 30 with PMN predominance. He remains afebrile, no growth on blood culture. He has no skin lesions, abdominal pain, no diarrhea. The R sided chest wall pain that he had on admission (presumably 2/2 Pleural Effusion) is improving and he has no concerns for hospitalist team this morning. Exam Narrative: Exam Narrative: GEN: Alert and sitting comfortably in bedside chair, 3-4 word dyspnea, comfortable at rest HEENT: EOMIs bilaterally, no scleral icterus CV: RRR, No concerning murmurs, rubs, or gallops R: LCTA bilaterally without concerning wheezing, rales, or rhonchi Ext: No concerning edema of LEs, R hand edema has improved from admission. No erythema or skin breakdown, able to make a fist without discomfort Skin: No concerning skin lesions or rashes on exposed skin Neuro: Nonfocal Psych: Appropriate Const: Vital Signs, click to edit/add: Vital Signs - 24 hr 12/18/24 09:21 12/18/24 09:44 12/18/24 09:45 Temperature 98.4 F Pulse Rate 122 H 115 H Pulse Rate [Pulse Oximeter] 129 H Respiratory Rate 32 H Blood Pressure Blood Pressure [Ri ght Arm] Blood Pressure [Ri ght Upper Arm] 118/84 Pulse Oximetry 98 91 84 L Oxygen Delivery Me thod Room Air Oxygen Flow Rate Fraction of Inspir ed Oxygen 12/18/24 10:00 12/18/24 10:15 12/18/24 10:24 Temperature Pulse Rate 117 H 114 H 114 H Pulse Rate [Pulse Oximeter] Respiratory Rate 28 H Blood Pressure 110/85 Blood Pressure [Ri ght Arm] Blood Pressure [Ri ght Upper Arm] Pulse Oximetry 94 88 83 L Oxygen Delivery Me thod Oxygen Flow Rate Fraction of Inspir ed Oxygen 12/18/24 10:30 12/18/24 10:32 12/18/24 10:45 Temperature Pulse Rate 144 H 127 H 131 H Pulse Rate [Pulse Oximeter] Respiratory Rate 18 22 36 H Blood Pressure 153/97 H Blood Pressure [Ri ght Arm] Blood Pressure [Ri ght Upper Arm] Pulse Oximetry 82 L 89 85 L Oxygen Delivery Me thod Oxygen Flow Rate Fraction of Inspir ed Oxygen 12/18/24 11:00 12/18/24 11:02 12/18/24 11:28 Temperature Pulse Rate 126 H 110 H Pulse Rate [Pulse Oximeter] Respiratory Rate 32 H 30 H 38 H Blood Pressure 139/97 H Blood Pressure [Ri ght Arm] Blood Pressure [Ri ght Upper Arm] Pulse Oximetry 93 91 84 L Oxygen Delivery Me thod Oxygen Flow Rate Fraction of Inspir ed Oxygen 12/18/24 11:30 12/18/24 11:33 12/18/24 11:45 Temperature Pulse Rate 123 H 124 H 120 H Pulse Rate [Pulse Oximeter] Respiratory Rate 53 H 31 H 46 H Blood Pressure 165/96 H Blood Pressure [Ri ght Arm] Blood Pressure [Ri ght Upper Arm] Pulse Oximetry 88 91 92 Oxygen Delivery Me thod Oxygen Flow Rate Fraction of Inspir ed Oxygen 12/18/24 12:01 12/18/24 12:02 12/18/24 12:30 Temperature Pulse Rate 113 H Pulse Rate [Pulse Oximeter] Respiratory Rate 26 H 29 H 17 Blood Pressure 137/89 Blood Pressure [Ri ght Arm] Blood Pressure [Ri ght Upper Arm] Pulse Oximetry 91 88 Oxygen Delivery Me thod Nasal Cannula Oxygen Flow Rate 3 Fraction of Inspir ed Oxygen 12/18/24 13:00 12/18/24 13:02 12/18/24 13:25 Temperature 98.6 F Pulse Rate 93 Pulse Rate [Pulse Oximeter] 101 H Respiratory Rate 34 H 27 H 26 H Blood Pressure 138/91 H Blood Pressure [Ri ght Arm] 126/109 H Blood Pressure [Ri ght Upper Arm] Pulse Oximetry 89 94 86 L Oxygen Delivery Me thod Nasal Cannula Oxygen Flow Rate 5 Fraction of Inspir ed Oxygen 12/18/24 13:25 12/18/24 14:00 12/18/24 14:45 Temperature Pulse Rate Pulse Rate [Pulse Oximeter] Respiratory Rate 27 H 28 H Blood Pressure Blood Pressure [Ri ght Arm] 103/85 Blood Pressure [Ri ght Upper Arm] Pulse Oximetry 86 L 95 Oxygen Delivery Me thod Nasal Cannula High Flow Nasal Ca nnula Oxygen Flow Rate 5 Fraction of Inspir ed Oxygen 60 12/18/24 15:20 12/18/24 16:00 12/18/24 16:00 Temperature Pulse Rate 91 Pulse Rate [Pulse Oximeter] Respiratory Rate 26 H Blood Pressure Blood Pressure [Ri ght Arm] Blood Pressure [Ri ght Upper Arm] Pulse Oximetry 90 Oxygen Delivery Me thod High Flow Nasal Ca nnula Oxygen Flow Rate 35 35 Fraction of Inspir ed Oxygen 50 50 12/18/24 16:00 12/18/24 17:54 12/18/24 18:06 Temperature 99.1 F 98.9 F Pulse Rate Pulse Rate [Pulse Oximeter] Respiratory Rate 26 H 28 H Blood Pressure Blood Pressure [Ri ght Arm] 129/96 H 110/78 Blood Pressure [Ri ght Upper Arm] Pulse Oximetry 90 96 Oxygen Delivery Me thod High Flow Nasal Ca nnula High Flow Nasal Ca nnula Oxygen Flow Rate 30 30 Fraction of Inspir ed Oxygen 55 55 55 12/18/24 19:58 12/18/24 20:05 12/18/24 20:22 Temperature 98.3 F Pulse Rate 69 Pulse Rate [Pulse Oximeter] 78 Respiratory Rate 28 H Blood Pressure Blood Pressure [Ri ght Arm] 112/98 H Blood Pressure [Ri ght Upper Arm] Pulse Oximetry 96 Oxygen Delivery Me thod High Flow Nasal Ca nnula Oxygen Flow Rate 35 Fraction of Inspir ed Oxygen 55 55 12/18/24 21:00 12/18/24 21:43 12/18/24 23:00 Temperature 98.9 F Pulse Rate 69 Pulse Rate [Pulse Oximeter] 88 Respiratory Rate 26 H Blood Pressure Blood Pressure [Ri ght Arm] 134/79 Blood Pressure [Ri ght Upper Arm] Pulse Oximetry 95 Oxygen Delivery Me thod High Flow Nasal Ca nnula Oxygen Flow Rate 35 Fraction of Inspir ed Oxygen 55 55 12/18/24 23:00 12/18/24 23:00 12/18/24 23:25 Temperature Pulse Rate Pulse Rate [Pulse Oximeter] 88 Respiratory Rate 26 H 26 H Blood Pressure Blood Pressure [Ri ght Arm] Blood Pressure [Ri ght Upper Arm] Pulse Oximetry 95 Oxygen Delivery Me thod High Flow Nasal Ca nnula Oxygen Flow Rate 35 Fraction of Inspir ed Oxygen 55 55 12/18/24 23:50 12/19/24 01:00 12/19/24 02:39 Temperature 96.3 F L Pulse Rate Pulse Rate [Pulse Oximeter] 90 95 Respiratory Rate 26 H 26 H Blood Pressure Blood Pressure [Ri ght Arm] 121/81 104/85 Blood Pressure [Ri ght Upper Arm] Pulse Oximetry 90 90 Oxygen Delivery Me thod High Flow Nasal Ca nnula High Flow Nasal Ca nnula Oxygen Flow Rate 35 35 Fraction of Inspir ed Oxygen 55 60 60 12/19/24 03:00 12/19/24 04:49 12/19/24 05:00 Temperature 98.5 F Pulse Rate Pulse Rate [Pulse Oximeter] 84 Respiratory Rate 28 H Blood Pressure Blood Pressure [Ri ght Arm] 120/84 Blood Pressure [Ri ght Upper Arm] Pulse Oximetry 93 Oxygen Delivery Me thod High Flow Nasal Ca nnula Oxygen Flow Rate 35 Fraction of Inspir ed Oxygen 60 65 55 12/19/24 06:00 Temperature 97.9 F Pulse Rate Pulse Rate [Pulse Oximeter] 89 Respiratory Rate 26 H Blood Pressure Blood Pressure [Ri ght Arm] 107/73 Blood Pressure [Ri ght Upper Arm] Pulse Oximetry 91 Oxygen Delivery Me thod High Flow Nasal Ca nnula Oxygen Flow Rate 35 Fraction of Inspir ed Oxygen 55 Labs Labs: Laboratory Results - last 24 hr 12/18/24 12/18/24 12/18/24 09:52 10:23 10:36 WBC 19.93 H RBC 4.51 Hgb 14.4 Hct 44.4 MCV 98 MCH 32 MCHC 32 RDW Coeff of Pratik 12.7 Plt Count 309 Neut % (Auto) 89.7 H Lymph % (Auto) 5.3 L [place] % (Auto) 2.8 Eos % (Auto) 0.0 Baso % (Auto) 0.1 Neut # (Auto) 17.90 H Lymph # (Auto) 1.10 [place] # (Auto) 0.60 Eos # (Auto) 0.00 Baso # (Auto) 0.00 Abs Immat Gran (auto) 0.40 H Imm/Tot Granulo (auto) 2.1 VBG pH VBG pCO2 VBG pO2 VBG HCO3 Sodium 138 Potassium 3.5 L Chloride 103 Carbon Dioxide 25 Anion Gap 10 BUN 18 Creatinine 0.9 Estimated GFR 85 Glucose 152 H Lactate 2.1 H Calcium 8.9 Magnesium 2.0 Total Bilirubin 1.8 H Direct Bilirubin 0.8 H AST 35 ALT 25 Alkaline Phosphatase 104 Troponin I 0.01 C-Reactive Protein 18.9 H NT-Pro-B Natriuret Pep 2920 Total Protein 8.1 Albumin 3.9 TSH Urine Color Urine Appearance Urine pH Ur Specific [place] Urine Protein Urine Glucose (UA) Urine Ketones Urine Blood Urine Nitrite Urine Bilirubin Urine Urobilinogen Ur Leukocyte Esterase Urine RBC Urine WBC Ur Squamous Epith Cells Urine Bacteria SARS-CoV-2 (PCR) Negative SARS-CoV-2 Influenza Type A (PCR) Negative PCR FLU A Influenza Type B (PCR) Negative PCR FLU B Lab Acknowledgement Test Added POC Creatinine 1.0 12/18/24 12/18/24 12/18/24 11:08 12:35 14:03 WBC RBC Hgb Hct MCV MCH MCHC RDW Coeff of Pratik Plt Count Neut % (Auto) Lymph % (Auto) [place] % (Auto) Eos % (Auto) Baso % (Auto) Neut # (Auto) Lymph # (Auto) [place] # (Auto) Eos # (Auto) Baso # (Auto) Abs Immat Gran (auto) Imm/Tot Granulo (auto) VBG pH VBG pCO2 VBG pO2 VBG HCO3 Sodium Potassium Chloride Carbon Dioxide Anion Gap BUN Creatinine Estimated GFR Glucose Lactate 2.6 H Calcium Magnesium Total Bilirubin Direct Bilirubin AST ALT Alkaline Phosphatase Troponin I C-Reactive Protein NT-Pro-B Natriuret Pep Total Protein Albumin TSH 0.853 Urine Color Urine Appearance Urine pH Ur Specific [place] Urine Protein Urine Glucose (UA) Urine Ketones Urine Blood Urine Nitrite Urine Bilirubin Urine Urobilinogen Ur Leukocyte Esterase Urine RBC Urine WBC Ur Squamous Epith Cells Urine Bacteria SARS-CoV-2 (PCR) Influenza Type A (PCR) Influenza Type B (PCR) Lab Acknowledgement Test Added POC Creatinine 12/18/24 12/18/24 12/19/24 14:43 16:00 06:14 WBC RBC Hgb Hct MCV MCH MCHC RDW Coeff of Pratik Plt Count Neut % (Auto) Lymph % (Auto) [place] % (Auto) Eos % (Auto) Baso % (Auto) Neut # (Auto) Lymph # (Auto) [place] # (Auto) Eos # (Auto) Baso # (Auto) Abs Immat Gran (auto) Imm/Tot Granulo (auto) VBG pH 7.437 H VBG pCO2 43 VBG pO2 < 30.1 VBG HCO3 29 H Sodium Potassium Chloride Carbon Dioxide Anion Gap BUN Creatinine Estimated GFR Glucose Lactate Calcium Magnesium Total Bilirubin Direct Bilirubin AST ALT Alkaline Phosphatase Troponin I C-Reactive Protein NT-Pro-B Natriuret Pep Total Protein Albumin TSH Urine Color Yellow Urine Appearance Clear Urine pH 6.5 Ur Specific [place] 1.015 Urine Protein Negative Urine Glucose (UA) Negative Urine Ketones Negative Urine Blood Negative Urine Nitrite Negative Urine Bilirubin Negative Urine Urobilinogen 0.2 Ur Leukocyte Esterase Negative Urine RBC 0-2 Urine WBC 0-2 Ur Squamous Epith Cells None Urine Bacteria None SARS-CoV-2 (PCR) Influenza Type A (PCR) Influenza Type B (PCR) Lab Acknowledgement ADDED POC Creatinine
[2024-12-19 07:20] LABS: Chloride* 100 mmol/L (96-114); Potassium* 3.7 mmol/L (3.6-5.1); Sodium* 136 mmol/L (135-149)
[2024-12-19 07:22] LABS: Blood Urea Nitrogen* 25 mg/dL (7-30); Creatinine* 1.2 mg/dL (0.5-1.5); Est. Creatinine Clearance* 54.23; Estimated Glomerular Filt Rate 60 ml/min
[2024-12-19 07:23] LABS: Anion Gap 9 mEq/L (7-15); Calcium* 8.5 mg/dL (8.4-10.6); Carbon Dioxide* 27 mmol/L (20-32); Glucose* 126 mg/dL (60-115); Magnesium* 2.2 mg/dL (1.5-2.6); Uric Acid* 7.2 mg/dL (2.2-8.4)
[2024-12-19 07:33] LABS: NT Pro B Type NatriureticPept* 3310 pg/mL
[2024-12-19 07:34] LABS: Troponin I* 0.02 ng/mL (0.01-0.04)
[2024-12-19 07:49] LABS: Slide Review Reflex Yes; White Blood Count* 30.17 K/uL (4.50-11.00)
[2024-12-19 07:50] LABS: Slide Review Acceptable Review (Acceptable)
--- NOTE | 2024-12-19 08:01 | RESP.RT ---
Up in chair on HFNC to maintain SaO2 >90%. Patient is comfortable on FiO2 55%, Flow 35Lpm, temperature 36 degrees (C). BBS with fine crackles/rales noted inspiratory/expiratory, no wheezing or grunting noted. PEP with Aerobika done with patient making good effort with good chest shake. Aerobika promoted good congested cough, patient swallowed secretions. SaO2 pre Aerobika use 92%, with patient doing 4 good breaths, and promoting cough to command SaO2 increased to 100% for short period of time. Patient will self administer with encouragement from RT and Nursing staff.
[2024-12-19] MEDS: cefTRIAXone 1 GM in 0.9 % SODIUM CHLORIDE Mini-bag 100 ML IVPB (08:14)
[2024-12-19] MEDS: POTASSIUM CHLORIDE 10 MEQ CAPSULE ER 20 MEQ PO ×2 (08:15→18:21)
[2024-12-19] MEDS: APIXABAN 5 MG TABLET PO ×2 (08:16→20:42)
[2024-12-19] MEDS: METOPROLOL SUCCINATE (XL) 50 MG TAB PO (08:16)
[2024-12-19] MEDS: AZITHROMYCIN 250 MG TABLET 500 MG PO (08:16)
[2024-12-19] MEDS: VANCOMYCIN 1.5 GM/300 ML 1.5 GM/300 ML PIGGYBACK IVPB (09:06)
--- NOTE | 2024-12-19 09:30 | CRLHL7_ITS ---
For Patients: As a result of the Cures Act, medical imaging exams and procedure reports are released immediately into your electronic medical record. You may view this report before your referring provider. If you have questions, please contact your health care provider. INDICATION: Follow-up pneumonia TECHNIQUE: Chest [address] 12/18/2024 : FINDINGS: Right pleural effusion again noted. Reticular densities in the left lower lobe and right lower lobe again noted. Similar appearance of the central pulmonary vessels and cardiac silhouette. No pneumothorax. Degenerative changes right shoulder. IMPRESSION: Similar right pleural effusion with bilateral lower lobe reticular densities suggesting aspiration pneumonia. No significant change. Dictated by Carl Dean MD @ 12/19/2024 11:03:10 AM (Electronically Signed)
--- NOTE | 2024-12-19 09:59 | NUTR.NU ---
RDN with diet education related to heart healthy diet. Patient admitted for new a. fib with RVR, respiratory failure, and pneumonia. Current weight 215lb 8oz; height 6ft 2in; BMI 27.7 kg/m2. No weight history in chart. Per patient, weight has been stable recently. Current diet is Heart Healthy. Meal intakes since admit 75%+. RDN visited with patient and daughter. Patient does not follow a specific diet at home. He reports a normal appetite and weight. RDN offered diet education related to heart healthy diet to patient and daughter, however both refused at this time. Daughter is aware of diet and understands patient should try to follow a low-sodium, low fat/cholesterol diet. Encouraged patient to only order small/moderate portions of food at this time due to being on oxygen. Patient and daughter had no questions or concerns at this time. RDN will continue to monitor and follow-up prn.
--- NOTE | 2024-12-19 17:37 | PC.NURSE ---
end of shift. pt has been very pleasant and cooperative. A&Ox4, he is very fidgety. HFNC 35L 55, 36. NC 6L for eating. he can be up to BR and walking in halls with oxymask on. Respirations 24-28. c/o SOB with activity. Intermittent dry cough. no pain except for coughing 2-6/10, Using Aerobika and stopped using IS per IS. Up to BSC frequently he is getting IV lasix. ECHO is patent.
[2024-12-20] VITALS (13 sets, daily range): BP systolic 103–128; BP diastolic 55–99; PULSE 77–99; RESP 17–22; TEMP 35.6–36.6; O2SAT 91–97
--- NOTE | 2024-12-20 03:30 | PC.NURSE ---
Pt rested well this night in chair. Remained on Hi Flow NC 35/55/36. Becomes SOB with activity. Reporting zero pain. Oriented times 3. Pleasant and cooperative.
[2024-12-20] MEDS: FUROSEMIDE 10 MG/ML inj 40 MG IVP ×3 (04:08→20:50)
[2024-12-20 06:56] LABS: Hematocrit 43.5 % (37.0-53.0); Hemoglobin* 14.3 gm/dL (13.5-17.5); Immature Granulocytes Pct Auto 1.3 %; Lymphocytes Percent Auto 3.6 % (20-44); Mean Corpuscular HGB Conc 33 gm/dL (32-36); Mean Corpuscular Hemoglobin 32 pg (26-34); Mean Corpuscular Volume 98 fL (80-100); Monocytes Percent Auto 3.6 % (0.0-11.0); Neutrophils Percent Auto 91.5 % (42.0-72.0); Platelet Count* 298 K/uL (140-440); RDW Coefficient of Variation % 12.8 % (11.5-15.5); Red Blood Count 4.43 m/uL (4.30-5.90)
[2024-12-20 07:06] LABS: Slide Review Reflex No; White Blood Count* 34.61 K/uL (4.50-11.00)
[2024-12-20 07:25] LABS: Albumin* 3.4 g/dL (3.3-5.0); Chloride* 100 mmol/L (96-114); Potassium* 3.6 mmol/L (3.6-5.1); Sodium* 137 mmol/L (135-149)
[2024-12-20 07:27] LABS: Blood Urea Nitrogen* 35 mg/dL (7-30); Creatinine* 1.3 mg/dL (0.5-1.5); Est. Creatinine Clearance* 50.06; Estimated Glomerular Filt Rate 55 ml/min
[2024-12-20 07:28] LABS: Alanine Aminotransferase* 22 U/L (4-50); Alkaline Phosphatase* 103 U/L (40-150); Anion Gap 12 mEq/L (7-15); Aspartate Amino Transferase* 38 U/L (12-35); Bilirubin Total* 1.4 mg/dL (0.1-1.5); Calcium* 8.4 mg/dL (8.4-10.6); Carbon Dioxide* 25 mmol/L (20-32); Glucose* 111 mg/dL (60-115); Total Protein* 7.5 g/dL (6.0-8.3)
[2024-12-20 08:39] LABS: Legionella pneumo Ag Urine L. pneumo Negative (Negative); S pneumo Ag Urine S. pneumo Negative (Negative)
[2024-12-20] MEDS: AZITHROMYCIN 250 MG TABLET 500 MG PO (08:47)
[2024-12-20] MEDS: POTASSIUM CHLORIDE 10 MEQ CAPSULE ER 20 MEQ PO ×2 (08:47→18:07)
[2024-12-20] MEDS: METOPROLOL SUCCINATE (XL) 50 MG TAB PO (08:48)
[2024-12-20] MEDS: APIXABAN 5 MG TABLET PO ×2 (08:48→20:50)
[2024-12-20] MEDS: cefTRIAXone 1 GM in 0.9 % SODIUM CHLORIDE Mini-bag 100 ML IVPB (08:48)
[2024-12-20] MEDS: SODIUM CHLORIDE 0.9 % (FLUSH) 10 ML SYRINGE 5 ML IVF ×2 (08:49→20:50)
[2024-12-20 09:14] LABS: Lactate* 1.4 mmol/L (0.5-1.9)
[2024-12-20] MEDS: VANCOMYCIN 1.5 GM/300 ML 1.5 GM/300 ML PIGGYBACK IVPB (09:43)
--- NOTE | 2024-12-20 12:10 | P.IMPN_ITS ---
Subjective Date Seen: 12/20/24 Interval history: Daily Progress Note - Hospital Medicine #: 3 CC: hypoxic resp failure; CAP, requiring HFLOW oxygen 24 HOUR UPDATE: rested well overnight. quite dyspneic with moving back and forth from bathroom to bed. uncomfortable in bed; feels he breaths better in the recliner. working dx is CAP with mild/mod CHF exacerbation. RT following, was initially placed on high flow oxygen, intermittently tolerating 6L per NC. presented with new AFIB and felt to be wet - is on 40mg of IV Furosemide Q8, Metoprolol for rate control, Eliquis for prophylaxis. The R sided chest wall pain that he had on admission (presumably 2/2 Pleural Effusion) is improving and he has no concerns for hospitalist team this morning. Notable Labs, Micro, Rads, Interventions: Afebrile since arrival. Blood pressure has been low normal. Pulse 70s to 90s, sinus Respiratory rate 17 to 18, no respiratory distress at rest on high-flow oxygen support at 35 L and 55% FiO2. Weight 97.5 kilos this is essentially stable. The 1st weight at 93.8 kilos was a stated weight , not measured. CBC reflects a uptrending white blood cell count. Admitted at 19 K now up to 34.6 K. asthma Hemoglobin stable, normal at 14.3 Platelet count normal. Electrolytes are normal but I do note and uptrending creatinine from 0.9-1.3 (he has been given a fair amount of Lasix). BUN is 35 today. His creatinine clearance is estimated at 50. His blood sugar is normal. His lactate has returned to normal with a peak of 2.6. His CRP is up trending 20-40 in 2 days. Procalcitonin is pending Strep pneumo and Legionella are negative. COVID and flu are negative MRSA is pending A single blood cultures negative to date I have reviewed admission CT chest, and echocardiogram. -mild right sided dysfunction; no sign valvular disease or LV dysfunction -scarring; right pleural effusion; bibasilar airspace disease. Objective: appears stated age; normal speech and interest and conversation Vitals: see above Lungs: right lower lung diminished; crackles, fine. no wheezes. Cardiac: S1S2. Trace edema peripherally Disposition/Potential discharge - home vs SNF for rehab. Today I spent 50minutes seeing the patient, reviewing Expanse and EPIC notes/diagnostics, discussing the care plan with our care time that includes social work, PT/OT, pharmacy, RT, long-term and documenting my impressions and plan in the medical record. Exam Const: Vital Signs, click to edit/add: Vital Signs - 24 hr 12/19/24 15:00 12/19/24 15:00 12/19/24 15:00 Temperature 87.6 F L Pulse Rate Pulse Rate [Pulse Oximeter] 92 Respiratory Rate 20 22 Blood Pressure [Ri ght Arm] 101/62 Pulse Oximetry 92 92 Oxygen Delivery Me thod Nasal Cannula Nasal Cannula Oxygen Flow Rate 35 35 Fraction of Inspir ed Oxygen 55 55 55 12/19/24 15:00 12/19/24 16:11 12/19/24 17:32 Temperature Pulse Rate 88 Pulse Rate [Pulse Oximeter] 92 Respiratory Rate 22 Blood Pressure [Ri ght Arm] Pulse Oximetry Oxygen Delivery Me thod Oxygen Flow Rate Fraction of Inspir ed Oxygen 55 12/19/24 19:10 12/19/24 19:12 12/19/24 21:03 Temperature 98.8 F Pulse Rate Pulse Rate [Pulse Oximeter] 93 Respiratory Rate 18 Blood Pressure [Ri ght Arm] 135/73 Pulse Oximetry 91 Oxygen Delivery Me thod High Flow Nasal Ca nnula Oxygen Flow Rate Fraction of Inspir ed Oxygen 55 55 12/19/24 22:29 12/19/24 22:46 12/19/24 22:46 Temperature 98 F Pulse Rate Pulse Rate [Pulse Oximeter] 85 Respiratory Rate 18 Blood Pressure [Ri ght Arm] 101/70 Pulse Oximetry 96 96 Oxygen Delivery Me thod High Flow Nasal Ca nnula Oxygen Flow Rate Fraction of Inspir ed Oxygen 55 12/19/24 22:47 12/19/24 22:48 12/19/24 23:21 Temperature Pulse Rate 90 Pulse Rate [Pulse Oximeter] 85 Respiratory Rate 18 18 Blood Pressure [Ri ght Arm] Pulse Oximetry 96 Oxygen Delivery Me thod High Flow Nasal Ca nnula Oxygen Flow Rate 35 Fraction of Inspir ed Oxygen 55 12/20/24 00:48 12/20/24 02:48 12/20/24 04:06 Temperature 97 F L Pulse Rate Pulse Rate [Pulse Oximeter] 95 Respiratory Rate 18 Blood Pressure [Ri ght Arm] 128/99 H Pulse Oximetry 93 Oxygen Delivery Me thod High Flow Nasal Ca nnula Oxygen Flow Rate Fraction of Inspir ed Oxygen 55 55 12/20/24 04:58 12/20/24 06:56 12/20/24 07:45 Temperature Pulse Rate 80 Pulse Rate [Pulse Oximeter] Respiratory Rate Blood Pressure [Ri ght Arm] Pulse Oximetry 95 Oxygen Delivery Me thod Oxygen Flow Rate Fraction of Inspir ed Oxygen 55 12/20/24 07:45 12/20/24 07:45 12/20/24 07:45 Temperature Pulse Rate Pulse Rate [Pulse Oximeter] 95 Respiratory Rate 18 18 Blood Pressure [Ri ght Arm] Pulse Oximetry 95 Oxygen Delivery Me thod High Flow Nasal Ca nnula Oxygen Flow Rate 35 Fraction of Inspir ed Oxygen 55 55 12/20/24 07:45 12/20/24 07:45 12/20/24 09:40 Temperature 97.9 F Pulse Rate Pulse Rate [Pulse Oximeter] 79 Respiratory Rate 18 Blood Pressure [Ri ght Arm] 103/55 L Pulse Oximetry 95 Oxygen Delivery Me thod High Flow Nasal Ca nnula Oxygen Flow Rate 35 Fraction of Inspir ed Oxygen 55 55 55 12/20/24 10:45 12/20/24 10:47 Temperature Pulse Rate Pulse Rate [Pulse Oximeter] Respiratory Rate 17 Blood Pressure [Ri ght Arm] Pulse Oximetry Oxygen Delivery Me thod Nasal Cannula Oxygen Flow Rate 55 3.5 Fraction of Inspir ed Oxygen 35 Labs Labs: Laboratory Results - last 24 hr 12/18/24 12/20/24 12/20/24 16:00 06:00 07:52 WBC 34.61 H* RBC 4.43 Hgb 14.3 Hct 43.5 MCV 98 MCH 32 MCHC 33 RDW Coeff of Pratik 12.8 Plt Count 298 Neut % (Auto) 91.5 H Lymph % (Auto) 3.6 L Gibson % (Auto) 3.6 Eos % (Auto) 0.0 Baso % (Auto) 0.0 Neut # (Auto) 31.70 H Lymph # (Auto) 1.20 Gibson # (Auto) 1.20 H Eos # (Auto) 0.00 Baso # (Auto) 0.00 Abs Immat Gran (auto) 0.40 H Imm/Tot Granulo (auto) 1.3 VBG pH VBG pCO2 VBG pO2 VBG HCO3 Sodium 137 Potassium 3.6 Chloride 100 Carbon Dioxide 25 Anion Gap 12 BUN 35 H Creatinine 1.3 Estimated Creat Clear 50.06 Estimated GFR 55 Glucose 111 Lactate Calcium 8.4 Total Bilirubin 1.4 AST 38 H ALT 22 Alkaline Phosphatase 103 C-Reactive Protein 40.0 H Total Protein 7.5 Albumin 3.4 Urine L. pneumophilia Ag L. pneumo Negative Urine Strep pneumoniae Ag S. pneumo Negative Lab Acknowledgement Test Added 12/20/24 08:40 WBC RBC Hgb Hct MCV MCH MCHC RDW Coeff of Pratik Plt Count Neut % (Auto) Lymph % (Auto) Gibson % (Auto) Eos % (Auto) Baso % (Auto) Neut # (Auto) Lymph # (Auto) Gibson # (Auto) Eos # (Auto) Baso # (Auto) Abs Immat Gran (auto) Imm/Tot Granulo (auto) VBG pH Cancelled VBG pCO2 Cancelled VBG pO2 Cancelled VBG HCO3 Cancelled Sodium Potassium Chloride Carbon Dioxide Anion Gap BUN Creatinine Estimated Creat Clear Estimated GFR Glucose Lactate 1.4 Calcium Total Bilirubin AST ALT Alkaline Phosphatase C-Reactive Protein Total Protein Albumin Urine L. pneumophilia Ag Urine Strep pneumoniae Ag Lab Acknowledgement Assessment and Plan Assessment and plan (1) Acute hypoxic respiratory failure: Problem comment: - multifactorial: presumed CHF (no previous hx but BNP was elevated and some mild changes on echo), a fib with RVR, CAP, no wheezing (no known history of COPD, but CT on 12/18 did exhibit emphysematous changes 2/2 previous smoker >25 years) - RT following - supplemental oxygen, rate control, aggressive diuresis, TTE, Aerobika, antibiotics (Ceftriaxone and Azithro 12/18, added Vancomycin 12/19) - ID consult afternoon of 12/20/24 Status: Acute (2) Community acquired pneumonia: Problem comment: - bibasilar, R>L on CV 12/18 - negative triple swab, Ceftriaxone and Azithromycin (12/18), + Vancomycin (12/19) - blood culture NGTD - MRSA is pending - legionella and strep pneumo negative - no new imaging today Status: Acute (3) Pleural effusion: Problem comment: - likely source of R chest wall pain upon admission - pending clinical course, consider thoracentesis Status: Acute (4) Atrial fibrillation with RVR: Problem comment: - new onset 12/18/24 - rate improved with one dose of IV Diltiazem in ED - initiated po Eliquis and Metoprolol 12/18 - TTE 12/18 with results below: Final Impressions: 1. Technically limited exam. 2. Normal LV size, normal wall thickness, normal global systolic function with an estimated EF of 55 - 60%. 3. Right ventricular cavity size is moderately enlarged, global systolic RV function is borderline reduced. 4. Severe biatrial enlargement. 5. No significant valve disease detected. 6. Borderline increased estimated pulmonary pressures by tricuspid regurgitation velocity and right atrial pressure (37 mmHg including RAP of 3 mmHg). Status: Acute (5) Gout: Problem comment: - history of this - on admission, concern for gout flare in R hand, but improved on hospital day 1 without any anti-inflammatories - uric acid is normal. - no further edema or erythema, no skin breakdown Status: Acute (6) Weakness: Problem comment: - multifactorial from issues above, therapies following, blood cultures currently NGTD Status: Acute
[2024-12-20 13:02] LABS: Procalcitonin* 1.19 ng/mL (<0.50)
--- NOTE | 2024-12-20 13:28 | RESP.RT ---
Pt off of HFNC all day. Tolerating well. On 3-3.5L [id number]% PT has strong harsh [employer] cough BBS coarse Works well with aerobika for about 10 breaths, then becomes slightly SOB O/W Pulmonary effort is comfortable for him. Continue to wean oxygen as tolerates.
--- NOTE | 2024-12-20 22:40 | PC.NURSE ---
Patient alert and awake during the shift. Participating in therapies and able to maintain o2 >90% on 3.5L nasal cannula. PAtient needing 6-7L O2 with activity or transfers. IV lasix administered. Patient reported no pain. IV antibiotics completed. Nursing to continue to monitor.
[2024-12-21] VITALS (13 sets, daily range): BP systolic 106–118; BP diastolic 58–94; PULSE 78–100; RESP 20–24; TEMP 36.2–37.1; O2SAT 86–95
[2024-12-21] MEDS: FUROSEMIDE 10 MG/ML inj 40 MG IVP (04:43)
[2024-12-21 06:48] LABS: HCO3 VBG 30 mmol/L (21-28); PCO2 VBG 48 mmHG (40-50); PO2 VBG < 30.1 mmHG (25-47); pH VBG 7.415 (7.32-7.43)
--- NOTE | 2024-12-21 06:54 | PC.NURSE ---
End of shift summary: Pt has been A&O, afebrile and VSS with exception to ongoing supplemental O2 needs. He maintained O2 sats > 87% on 4L NC all night. Pt reports work of breathing is much increased. Pt is Ax1 with 2ww while ambulating. He was able to walk all the way to the bathroom overnight, O2 dropped to 81% on the 4L. Intermittent non-productive cough. Pt reported sleeping well in between cares. Pt had x1 BM overnight, unfortunately there was no collection container in the toilet & C. Diff sample was not obtained. TELE has been A. Fib NVR rate in the 80s with occ. PVC?s. Pt had no c/o pain or nausea overnight, still having some SOB with activity. ?
[2024-12-21 06:58] LABS: Hematocrit 43.8 % (37.0-53.0); Hemoglobin* 14.5 gm/dL (13.5-17.5); Immature Granulocytes Pct Auto 1.3 %; Lymphocytes Percent Auto 4.6 % (20-44); Mean Corpuscular HGB Conc 33 gm/dL (32-36); Mean Corpuscular Hemoglobin 32 pg (26-34); Mean Corpuscular Volume 98 fL (80-100); Monocytes Percent Auto 4.7 % (0.0-11.0); Neutrophils Percent Auto 89.4 % (42.0-72.0); Platelet Count* 350 K/uL (140-440); RDW Coefficient of Variation % 12.8 % (11.5-15.5); Red Blood Count 4.48 m/uL (4.30-5.90)
[2024-12-21 07:05] LABS: Slide Review Reflex No
[2024-12-21 07:09] LABS: Albumin* 3.6 g/dL (3.3-5.0); Chloride* 99 mmol/L (96-114); Potassium* 3.7 mmol/L (3.6-5.1); Sodium* 137 mmol/L (135-149)
[2024-12-21 07:11] LABS: Blood Urea Nitrogen* 40 mg/dL (7-30); Creatinine* 1.1 mg/dL (0.5-1.5); Est. Creatinine Clearance* 59.16; Estimated Glomerular Filt Rate 67 ml/min
[2024-12-21 07:12] LABS: Alanine Aminotransferase* 40 U/L (4-50); Alkaline Phosphatase* 122 U/L (40-150); Anion Gap 9 mEq/L (7-15); Aspartate Amino Transferase* 75 U/L (12-35); Bilirubin Total* 1.5 mg/dL (0.1-1.5); Calcium* 8.3 mg/dL (8.4-10.6); Carbon Dioxide* 29 mmol/L (20-32); Glucose* 119 mg/dL (60-115); Total Protein* 7.7 g/dL (6.0-8.3)
[2024-12-21 07:28] LABS: Procalcitonin* 1.01 ng/mL (<0.50)
[2024-12-21 07:44] LABS: C Reactive Protein* 33.6 mg/dL (0.5-1.0)
[2024-12-21] MEDS: METOPROLOL SUCCINATE (XL) 50 MG TAB PO (09:13)
[2024-12-21] MEDS: POTASSIUM CHLORIDE 10 MEQ CAPSULE ER 20 MEQ PO ×2 (09:13→18:39)
[2024-12-21] MEDS: APIXABAN 5 MG TABLET PO ×2 (09:13→20:12)
[2024-12-21] MEDS: cefTRIAXone 1 GM in 0.9 % SODIUM CHLORIDE Mini-bag 100 ML IVPB (09:14)
[2024-12-21] MEDS: SODIUM CHLORIDE 0.9 % (FLUSH) 10 ML SYRINGE 5 ML IVF ×2 (09:14→20:12)
[2024-12-21] MEDS: VANCOMYCIN 1.5 GM/300 ML 1.5 GM/300 ML PIGGYBACK IVPB (09:18)
--- NOTE | 2024-12-21 11:37 | PM.IMPN1 ---
Assessment and Plan Assessment and plan (1) Acute hypoxic respiratory failure: Problem comment: - multifactorial: presumed CHF (no previous hx but BNP was elevated and some mild changes on echo), a fib with RVR, CAP, no wheezing (no known history of COPD, but CT on 12/18 did exhibit emphysematous changes 2/2 previous smoker >25 years) - RT following - supplemental oxygen, rate control, aggressive diuresis, TTE, Aerobika, antibiotics (Ceftriaxone and Azithro 12/18, added Vancomycin 12/19) - ID consult afternoon of 12/20/24 - recommended no changes; CCC. add unasyn and stop rocephin in WBC or other indicators rise. (did not on 12/21 so left regimen alone) Status: Acute (2) Community acquired pneumonia: Problem comment: - bibasilar, R>L on CV 12/18 - negative triple swab, Ceftriaxone and Azithromycin (12/18), + Vancomycin (12/19), stopped Azithro after three 500mg doses. - blood culture NGTD - MRSA is neg - legionella and strep pneumo negative - no new imaging today Status: Acute (3) Pleural effusion: Problem comment: - likely source of R chest wall pain upon admission - pending clinical course, consider thoracentesis Status: Acute (4) Atrial fibrillation with RVR: Problem comment: - new onset 12/18/24 - rate improved with one dose of IV Diltiazem in ED - initiated po Eliquis and Metoprolol 12/18 - TTE 12/18 with results below: Final Impressions: 1. Technically limited exam. 2. Normal LV size, normal wall thickness, normal global systolic function with an estimated EF of 55 - 60%. 3. Right ventricular cavity size is moderately enlarged, global systolic RV function is borderline reduced. 4. Severe biatrial enlargement. 5. No significant valve disease detected. 6. Borderline increased estimated pulmonary pressures by tricuspid regurgitation velocity and right atrial pressure (37 mmHg including RAP of 3 mmHg). Status: Acute (5) Gout: Problem comment: - history of this - on admission, concern for gout flare in R hand, but improved on hospital day 1 without any anti-inflammatories - uric acid is normal. - no further edema or erythema, no skin breakdown Status: Acute (6) Weakness: Problem comment: - multifactorial from issues above, therapies following, blood cultures currently NGTD - improving nicely Status: Acute Subjective Date Seen: 12/21/24 Interval history: Daily Progress Note - Hospital #: 4 CC: hypoxic resp failure; mild CHF exacerbation, CAP 24 HOUR UPDATE: much improved in the last 24 hours. His color, his energy, his dyspnea, humor is all improved. Weaned from high flow and is on NC oxygen. working dx is still CAP with mild/mod CHF exacerbation. RT following, was initially placed on high flow oxygen has weaned to NC oxygen. Aníbal presented with new AFIB and felt to be wet - is on 40mg of IV Furosemide Q8, Metoprolol for rate control, Eliquis for prophylaxis. The lasix was changed to oral daily dosing on 12/21 The R sided chest wall pain that he had on admission (presumably 2/2 Pleural Effusion) is improving and he has no concerns for hospitalist team this morning, other than when can I go home Notable Labs, Micro, Rads, Interventions: Afebrile since arrival. Blood pressure has been low normal. Pulse 70s to 90s, afib Respiratory rate 17 to 18, no respiratory distress. Weight 97.5 kilos this is essentially stable. The 1st weight at 93.8 kilos was a stated weight , not measured. CBC reflects leukocytosis: 19.9-->34.6-->29.9 Hemoglobin stable, normal Platelet count normal. Electrolytes are normal SASCHA (likely induced from lasix dosing) is improving. Creat baseline: 0.9-1.0 (he has been given a fair amount of Lasix). 1.1 today. His blood sugar is normal. His lactate has returned to normal with a peak of 2.6. His CRP has peaked 20-40-33.6 Procalcitonin is down trending 1.19 -> 1.01 Strep pneumo and Legionella are negative. COVID and flu are negative MRSA is negative A single blood culture negative to date I have reviewed admission CT chest, and echocardiogram. -mild right sided dysfunction; no sign valvular disease or LV dysfunction -scarring; right pleural effusion; bibasilar airspace disease. Objective: appears stated age; normal speech and interest and conversation Vitals: see above Lungs: right lower lung diminished; crackles, fine. no wheezes. Cardiac: S1S2. Trace edema peripherally Disposition/Potential discharge - Likely home with his wonderful daughters in support Today I spent 50minutes seeing the patient, reviewing Expanse and EPIC notes/diagnostics, discussing the care plan with our care time that includes social work, PT/OT, pharmacy, RT, [place] [facility] and documenting my impressions and plan in the medical record. Exam Const: Vital Signs, click to edit/add: Vital Signs - 24 hr 12/20/24 15:00 12/20/24 15:00 12/20/24 15:00 Temperature Pulse Rate Pulse Rate [Pulse Oximeter] 99 Respiratory Rate 22 22 Blood Pressure [Ri ght Arm] Pulse Oximetry 94 94 Oxygen Delivery Me thod Nasal Cannula Oxygen Flow Rate 3 Fraction of Inspir ed Oxygen 12/20/24 15:00 12/20/24 17:27 12/20/24 19:00 Temperature 96.0 F L 96.7 F L Pulse Rate 97 Pulse Rate [Pulse Oximeter] 99 85 Respiratory Rate 22 18 Blood Pressure [Ri ght Arm] 106/73 126/73 Pulse Oximetry 94 95 Oxygen Delivery Me thod Nasal Cannula Nasal Cannula Oxygen Flow Rate 3 3 Fraction of Inspir ed Oxygen 12/20/24 23:30 12/20/24 23:30 12/20/24 23:30 Temperature Pulse Rate 84 Pulse Rate [Pulse Oximeter] 96 Respiratory Rate 18 Blood Pressure [Ri ght Arm] Pulse Oximetry 96 Oxygen Delivery Me thod Oxygen Flow Rate Fraction of Inspir ed Oxygen 12/20/24 23:30 12/20/24 23:30 12/21/24 03:20 Temperature 98.8 F Pulse Rate Pulse Rate [Pulse Oximeter] 96 78 Respiratory Rate 18 18 20 Blood Pressure [Ri ght Arm] 114/74 Pulse Oximetry 96 96 92 Oxygen Delivery Me thod Nasal Cannula Nasal Cannula Nasal Cannula Oxygen Flow Rate 4 4 4 Fraction of Inspir ed Oxygen 35 12/21/24 06:51 12/21/24 07:45 12/21/24 07:45 Temperature Pulse Rate 96 Pulse Rate [Pulse Oximeter] Respiratory Rate Blood Pressure [Ri ght Arm] Pulse Oximetry 94 92 Oxygen Delivery Me thod Nasal Cannula Oxygen Flow Rate 3 Fraction of Inspir ed Oxygen 12/21/24 07:45 12/21/24 07:45 Temperature 97.2 F L Pulse Rate Pulse Rate [Pulse Oximeter] 100 100 Respiratory Rate 20 20 Blood Pressure [Ri ght Arm] 118/85 Pulse Oximetry 92 Oxygen Delivery Me thod Nasal Cannula Oxygen Flow Rate 3 Fraction of Inspir ed Oxygen Labs Labs: Laboratory Results - last 24 hr 12/20/24 12/20/24 12/21/24 06:00 12:22 06:06 WBC 29.90 H* RBC 4.48 Hgb 14.5 Hct 43.8 MCV 98 MCH 32 MCHC 33 RDW Coeff of Pratik 12.8 Plt Count 350 Neut % (Auto) 89.4 H Lymph % (Auto) 4.6 L Crenshaw % (Auto) 4.7 Eos % (Auto) 0.0 Baso % (Auto) 0.0 Neut # (Auto) 26.70 H Lymph # (Auto) 1.40 Crenshaw # (Auto) 1.40 H Eos # (Auto) 0.00 Baso # (Auto) 0.00 Abs Immat Gran (auto) 0.40 H Imm/Tot Granulo (auto) 1.3 VBG pH 7.415 VBG pCO2 48 VBG pO2 < 30.1 VBG HCO3 30 H Sodium 137 Potassium 3.7 Chloride 99 Carbon Dioxide 29 Anion Gap 9 BUN 40 H Creatinine 1.1 Estimated Creat Clear 59.16 Estimated GFR 67 Glucose 119 H Calcium 8.3 L Total Bilirubin 1.5 AST 75 H ALT 40 Alkaline Phosphatase 122 C-Reactive Protein 33.6 H Total Protein 7.7 Albumin 3.6 Procalcitonin 1.19 H 1.01 H Lab Acknowledgement Test Added
--- NOTE | 2024-12-21 18:49 | PC.NURSE ---
End of shift. pt is very pleasant. he is alert x4. he thinks he has a good sense of humor. minimal pain. he did not want anything for it., he has been on RA in the chair. Sao2 88-95% is aware. but he needs or with sleep and any activity. we are using 4 L nc to BR. he said that he is breathing better and his work of breathing is better. Pt is a SBA with 2ww, up to Br and in halls. PT and OT worked with him. he is using the Aerobika. he has a Intermittent non-productive cough. he likes the chair. he did try the bed and he did not like it. no BM today/. Tele shows he is eating drinking and voiding.
[2024-12-22] VITALS (10 sets, daily range): BP systolic 105–128; BP diastolic 65–86; PULSE 82–96; RESP 14–22; TEMP 36.2–37; O2SAT 88–94
--- NOTE | 2024-12-22 | CRLHL7_ITS ---
For Patients: As a result of the Century Cures Act, medical imaging exams and procedure reports are released immediately into your electronic medical record. You may view this report before your referring provider. If you have questions, please contact your health care provider. Indication: 2 VIEW CHEST FOR FU EFFUSION AND PNA; 1 VIEW COMPLETED THIS AM Technique: PA and lateral views of the chest. Comparison: 12/22/2024. Findings: Normal cardiomediastinal silhouette. Moderate right basilar opacity with moderate right pleural effusion. Minimal left basilar opacity. No visualized pneumothorax. Impression: 1. Moderate right basilar opacity may represent atelectasis or infection with moderate right pleural effusion. 2. Minimal left basilar opacity may represent atelectasis. Dictated by Sid Olguin MD @ 12/22/2024 12:24:50 PM (Electronically Signed)
--- NOTE | 2024-12-22 07:02 | PC.NURSE ---
19-07: pleasant and cooperative. SBA with walker. Placed on 4L O2 via NC when up to BR. 2.5L NC when asleep, pt sleeps in chair - hunched over, lower O2 sats likely r/t positioning, educated pt and encouraged better positioning. RA when awake. Encouraging aerobika and IS, LS dim in right lobe. Tele - AFib w/ normal ventricular rate.
[2024-12-22 07:14] LABS: Hematocrit 44.1 % (37.0-53.0); Hemoglobin* 14.3 gm/dL (13.5-17.5); Mean Corpuscular HGB Conc 32 gm/dL (32-36); Mean Corpuscular Hemoglobin 32 pg (26-34); Mean Corpuscular Volume 98 fL (80-100); Platelet Count* 362 K/uL (140-440); White Blood Count* 24.35 K/uL (4.50-11.00)
[2024-12-22 07:23] LABS: Chloride* 100 mmol/L (96-114); Potassium* 3.2 mmol/L (3.6-5.1); Sodium* 138 mmol/L (135-149)
[2024-12-22 07:26] LABS: Anion Gap 9 mEq/L (7-15); Blood Urea Nitrogen* 36 mg/dL (7-30); Calcium* 8.4 mg/dL (8.4-10.6); Carbon Dioxide* 29 mmol/L (20-32); Est. Creatinine Clearance* 65.08; Estimated Glomerular Filt Rate 75 ml/min; Glucose* 121 mg/dL (60-115)
[2024-12-22 07:29] LABS: Slide Review Reflex No
--- NOTE | 2024-12-22 07:43 | CRLHL7_ITS ---
For Patients: As a result of the Century Cures Act, medical imaging exams and procedure reports are released immediately into your electronic medical record. You may view this report before your referring provider. If you have questions, please contact your health care provider. INDICATION: Follow-up pneumonia and effusion TECHNIQUE: 1 view chest radiograph COMPARISON: 12/19/2024 FINDINGS: Devices: None. Lung volumes are moderate. Unchanged patchy opacities in the left lower lobe. Similar consolidation in the right middle and lower lobe. Moderate right pleural effusion. No pneumothorax seen, the patient`s chin and neck are over the upper lisa thorax. Heart size is large but similar to prior. IMPRESSION: No substantial change in the bilateral basilar lung opacities or moderate right pleural effusion when accounting for differences in patient position. Dictated by April Sharp MD @ 12/22/2024 8:48:52 AM (Electronically Signed)
[2024-12-22 08:14] LABS: C Reactive Protein* 29.7 mg/dL (0.5-1.0)
[2024-12-22] MEDS: VANCOMYCIN 1.5 GM/300 ML 1.5 GM/300 ML PIGGYBACK IVPB (08:44)
[2024-12-22] MEDS: METOPROLOL SUCCINATE (XL) 50 MG TAB PO (08:45)
[2024-12-22] MEDS: FUROSEMIDE 40 MG TABLET PO (08:45)
[2024-12-22] MEDS: APIXABAN 5 MG TABLET PO ×2 (08:45→20:52)
[2024-12-22] MEDS: cefTRIAXone 1 GM in 0.9 % SODIUM CHLORIDE Mini-bag 100 ML IVPB (08:45)
[2024-12-22] MEDS: POTASSIUM CHLORIDE 10 MEQ CAPSULE ER 20 MEQ PO ×2 (08:45→18:28)
--- NOTE | 2024-12-22 11:51 | P.DS_ITS ---
DS: Providers Provider Date Seen: 12/23/24 Date of admission: 12/18/24 14:03 Primary care physician: Not a Local Provider Admitting Clinician: Krystle Spencer MD Consults: 12/18/24 14:03 Consult to Respiratory Therapy [CONS] Routine Comment: Reason(s) for RT Consult:: Consult 12/19/24 Consult to Physical Therapy [CONS] Routine Comment: Reason(s) for PT Consult:: Evaluate and Treat Any Restrictions?:: No Restrictions 12/19/24 12:29 Consult to Occupational Therapy [CONS] Routine Comment: Reason(s) for OT Consult:: Evaluate and Treat Any Restrictions?:: No Restrictions Consult to Physical Therapy [CONS] Routine Comment: Reason(s) for PT Consult:: Evaluate and Treat Any Restrictions?:: No Restrictions 12/20/24 10:11 Consult to Infectious Diseases [CONS] Urgent Comment: admitted for pneumonia; wbc increasing Consulting Provider: Shahriar TeleInfectious Disease Attending Physician on discharge: KHALIF Smith, PA-C [place] [facility] Date of Discharge: 12/23/24 DS: Diagnosis Discharge Diagnosis (1) Acute hypoxic respiratory failure: Status: Acute Problem details: - multifactorial: presumed CHF (no previous hx but BNP was elevated and some mild changes on echo), a fib with RVR, CAP, no wheezing (no known history of COPD, but CT on 12/18 did exhibit emphysematous changes 2/2 previous smoker >25 years) - RT following - supplemental oxygen, rate control, aggressive diuresis, TTE, Aerobika, antibiotics (Ceftriaxone and Azithro 12/18, added Vancomycin 12/19) - ID consult afternoon of 12/20/24 - recommended no changes; cont current plan. add unasyn and stop rocephin in WBC or other indicators rise. (did not on 12/21 so left regimen alone) 12/22 - nearly off oxygen. transitioned to oral abx. Prior to discharge, patient remained on room air overnight, saturating in low 90s. Respiratory therapy assessed prior to discharge, recommending able to discharge to home given patient is not as active any longer, ambulating only short distances. Patient able to ambulate short distances, desaturates, rebounding into lower 90s after resting. Understands to continue to do this while at home. Patient likely also has poor peripheral perfusion, unable to obtain true accurate readings. Close outpatient follow-up with PCP. (2) Community acquired pneumonia: Status: Acute Problem details: - bibasilar, R>L on CV 12/18 - negative triple swab, Ceftriaxone and Azithromycin (12/18), + Vancomycin (12/19), stopped Azithro after three 500mg doses. - blood culture NGTD - MRSA is neg - legionella and strep pneumo negative - 2V CXR on 12/22 - moderate pleural effusion - probably worse from admission (now hydrated) - discussed with general surgery for thoracentesis - we decided to do outpatient CT in 1 week and arrange thora if needed at that time. - d/c rocephin and vanc on 12/22 - starting cefuroxime 500mg BID on 12/22 - complete 10 day total course (needs enough to get thru am dose on 12/28) Leukocytosis continuing to trend down. Has remained afebrile. Patient is discharged to home on cefuroxime 500 mg b.i.d. to complete a 10 day total course. Continue incentive spirometry. (3) Pleural effusion: Status: Acute Problem details: - likely source of R chest wall pain upon admission - off oxygen, may need to see if needs with exertion on 12/23 Consider 1 week f/u with PCP for CT and surgery consult for Thora if indicated. (4) Atrial fibrillation with RVR: Status: Acute Problem details: - new onset 12/18/24 - rate improved with one dose of IV Diltiazem in ED - initiated po Eliquis and Metoprolol 12/18 - TTE 12/18 with results below: Final Impressions: 1. Technically limited exam. 2. Normal LV size, normal wall thickness, normal global systolic function with an estimated EF of 55 - 60%. 3. Right ventricular cavity size is moderately enlarged, global systolic RV function is borderline reduced. 4. Severe biatrial enlargement. 5. No significant valve disease detected. 6. Borderline increased estimated pulmonary pressures by tricuspid regurgitation velocity and right atrial pressure (37 mmHg including RAP of 3 mmHg). Patient is discharged to home on Eliquis and metoprolol. Ongoing management with PCP. (5) Gout: Status: Acute Problem details: - history of this - on admission, concern for gout flare in R hand, but improved on hospital day 1 without any anti-inflammatories - uric acid is normal. - no further edema or erythema, no skin breakdown (6) Weakness: Status: Acute Problem details: - multifactorial from issues above, therapies following, blood cultures currently NGTD - improving nicely DS: Summary Hospital Course Hospital Course: Course of care and details as noted above. Remainder of chronic medical comorbidities were monitored and managed with home medications. Status at Discharge Overall status at discharge: patient is back to baseline Time Spent with Patient Time attestation: Total time spent providing and/or coordinating discharge services: Time spent: Greater than 30 minutes Exam Narrative: Exam Narrative: PHYSICAL EXAM General: Pleasant, conversant, NAD Cardiovascular: RRR Pulmonary: No dyspnea Neurological: Alert, answering questions appropriately Skin: Warm, dry. Const: Vital Signs, click to edit/add: Vital Signs - 24 hr 12/21/24 15:30 12/21/24 15:30 12/21/24 15:30 Temperature 97.6 F Pulse Rate Pulse Rate [Pulse Oximeter] 92 Respiratory Rate 20 Blood Pressure [Ri ght Arm] 112/58 L Pulse Oximetry 95 93 95 Oxygen Delivery Me thod Room Air Room Air Oxygen Flow Rate Fraction of Inspir ed Oxygen 12/21/24 16:00 12/21/24 16:43 12/21/24 20:10 Temperature Pulse Rate 78 Pulse Rate [Pulse Oximeter] 92 82 Respiratory Rate 20 24 Blood Pressure [Ri ght Arm] 114/94 H Pulse Oximetry 93 Oxygen Delivery Me thod Room Air Oxygen Flow Rate Fraction of Inspir ed Oxygen 12/21/24 20:44 12/21/24 22:30 12/21/24 22:59 Temperature 97.9 F Pulse Rate 82 Pulse Rate [Pulse Oximeter] 92 Respiratory Rate 20 Blood Pressure [Ri ght Arm] 106/73 Pulse Oximetry 86 L 93 Oxygen Delivery Me thod Nasal Cannula Oxygen Flow Rate 3 Fraction of Inspir ed Oxygen 12/21/24 23:00 12/21/24 23:48 12/22/24 02:45 Temperature 97.7 F Pulse Rate Pulse Rate [Pulse Oximeter] 87 Respiratory Rate 20 14 Blood Pressure [Ri ght Arm] 117/80 Pulse Oximetry 95 94 Oxygen Delivery Me thod Nasal Cannula Oxygen Flow Rate 3 Fraction of Inspir ed Oxygen 12/22/24 08:30 12/22/24 08:49 12/22/24 11:00 Temperature 98.4 F 98.6 F Pulse Rate Pulse Rate [Pulse Oximeter] 82 83 Respiratory Rate 22 22 20 Blood Pressure [Ri ght Arm] 128/86 105/81 Pulse Oximetry 90 90 90 Oxygen Delivery Me thod Nasal Cannula Room Air Room Air Oxygen Flow Rate 2 Fraction of Inspir ed Oxygen 0 DS: Data Data Completed and Pending Labs on day of discharge: Labs from last 24 hours 12/22/24 06:08 WBC 24.35 H RBC 4.50 Hgb 14.3 Hct 44.1 MCV 98 MCH 32 MCHC 32 Plt Count 362 Sodium 138 Potassium 3.2 L Chloride 100 Carbon Dioxide 29 Anion Gap 9 BUN 36 H Creatinine 1.0 Estimated Creat Clear 65.08 Estimated GFR 75 Glucose 121 H Calcium 8.4 C-Reactive Protein 29.7 H Preliminary micro results at discharge 12/18/24 10:23 Blood Culture - Preliminary Blood NO GROWTH AFTER [address] abdomen pelvis: Attestation: I have reviewed the pertinent imaging results. Radiologist's impression: Lower chest: Please refer to chest CT same day. Liver: Unremarkable. Spleen: Unremarkable. Pancreas: Unremarkable. Gallbladder and bile ducts: No calcified stones or biliary ductal dilatation. Kidneys: Bilateral cysts have not significantly changed. No urolithiasis, hydronephrosis or suspicious lesion. Adrenal glands: Unremarkable. GI tract: Distal colonic diverticulosis without evidence of acute diverticulitis. GI tract is otherwise unremarkable. No free air or free fluid. Lymph nodes: No pathologic lymphadenopathy. Vascular structures: Atherosclerotic disease. No abdominal aortic aneurysm. Pelvic Organs: Unremarkable. Bones: No acute or suspicious osseous abnormality. Degenerative changes spine and pelvis. IMPRESSION: No acute intra-abdominal or pelvic abnormality. CTA chest: Attestation: I have reviewed the pertinent imaging results. Radiologist's impression: Within the limitations of motion artifact, there is no evidence of pulmonary embolus. Distal segmental and subsegmental pulmonary emboli not excluded based on this exam. Aortic atherosclerosis. Thoracic vasculature as imaged is otherwise unremarkable. Cardiomegaly and coronary artery calcifications, as before. New small right pleural effusion. No left pleural effusion or pericardial effusion. No pathologic lymphadenopathy. Soft tissues of the thoracic wall are unremarkable. No pneumothorax. Lower lobe bronchial wall thickening is similar. Emphysema with biapical pleural parenchymal scarring, as before. Bibasilar opacities, right greater than left have increased. Nodular opacities in the left lower lobar unchanged and likely infectious/inflammatory in nature. Stable right renal cyst. Visualized upper abdomen is otherwise unremarkable. Degenerative changes of the spine. No acute or suspicious osseous abnormality. IMPRESSION: 1. Within the limitations of motion artifact, there is no evidence of pulmonary embolus. Distal segmental and subsegmental pulmonary emboli not excluded based on this exam. 2. Bibasilar atelectasis or airspace disease, right greater than left has increased. New small right pleural effusion. 3. Emphysema with biapical pleural-parenchymal scarring, as before. Chest x-ray: Attestation: I have reviewed the pertinent imaging results. Radiologist's impression: 12/19/24: Right pleural effusion again noted. Reticular densities in the left lower lobe and right lower lobe again noted. Similar appearance of the central pulmonary vessels and cardiac silhouette. No pneumothorax. Degenerative changes right shoulder. IMPRESSION: Similar right pleural effusion with bilateral lower lobe reticular densities suggesting aspiration pneumonia. No significant change. 12/22/24: Normal cardiomediastinal silhouette. Moderate right basilar opacity with moderate right pleural effusion. Minimal left basilar opacity. No visualized pneumothorax. Impression: 1. Moderate right basilar opacity may represent atelectasis or infection with moderate right pleural effusion. 2. Minimal left basilar opacity may represent atelectasis. 12/22/24: Lung volumes are moderate. Unchanged patchy opacities in the left lower lobe. Similar consolidation in the right middle and lower lobe. Moderate right pleural effusion. No pneumothorax seen, the patient`s chin and neck are over the upper lisa thorax. Heart size is large but similar to prior. IMPRESSION: No substantial change in the bilateral basilar lung opacities or moderate right pleural effusion when accounting for differences in patient position. Discharge Plan Discharge Disposition: Home, Self-Care Date of Admission: 12/18/24 14:03 Attending Provider on Discharge: Elisa Chisholm Consulting Providers: Brenda Abrams; Natalia Smith Primary Care Provider: Provider,Not a Local Condition: Improved Anticipated Discharge Date/Time: 12/23/24 09:39 Discharge Medications: New furosemide 40 mg Tablet 40 mg PO DAILY@0800 Qty: 30 0RF potassium chloride 10 mEq Capsule, Extended Release 20 meq PO BIDWM Qty: 60 0RF metoprolol succinate 50 mg Tablet Extended Release 24 Hr 50 mg PO DAILY Qty: 30 0RF cefuroxime axetil 500 mg Tablet 500 mg PO BIDWM Qty: 14 0RF Eliquis 5 mg Tablet 5 mg PO BID Qty: 60 0RF Discharge Orders: Discharge Order (Routine); Ordered 12/23/24 Ordered By: Elisa Chisholm Patient Education: Cefuroxime (By mouth), Metoprolol (By mouth), Furosemide (By mouth), Potassium Chloride (By mouth), Apixaban (By mouth), Bacterial Pneumonia (GEN) Additional Instructions: 1. Your new doc, Dr. Gruber, will need to see you in one week (Monday 01/01 or so is fine). We would like you to have a CT of your chest ordered by him to assess the fluid pocket on the right side of your chest we still see as you are discharging. If it isn't going down or is worse - He may elect to talk to a surgeon to drain it with a needle (thoracentesis). 2. Finish all your antibiotics! 3. You will now be on a blood pressure and blood thinner the rest of your life. This is for the arrhythmia (AFIB) you were found to have during this hospitalization. 4. For a short period of time you will need to have extra potassium and the fluid pill Lasix. Those meds are sent to your pharmacy. Activity Level: Activity as Tolerated Discharge Diet: Regular Follow Up Appointments: Dandre Gruber MD [Referring] - 12/27/24 11:15 am ([facility] for hospital follow-up, establish care. Please bring updated insurance card to appointment.) Forms: [facility] Info Instructions
--- NOTE | 2024-12-22 14:29 | PM.IMPN1 ---
Assessment and Plan Assessment and plan (1) Acute hypoxic respiratory failure: Problem comment: - multifactorial: presumed CHF (no previous hx but BNP was elevated and some mild changes on echo), a fib with RVR, CAP, no wheezing (no known history of COPD, but CT on 12/18 did exhibit emphysematous changes 2/2 previous smoker >25 years) - RT following - supplemental oxygen, rate control, aggressive diuresis, TTE, Aerobika, antibiotics (Ceftriaxone and Azithro 12/18, added Vancomycin 12/19) - ID consult afternoon of 12/20/24 - recommended no changes; cont current plan. add unasyn and stop rocephin in WBC or other indicators rise. (did not on 12/21 so left regimen alone) Status: Acute (2) Community acquired pneumonia: Problem comment: - bibasilar, R>L on CV 12/18 - negative triple swab, Ceftriaxone and Azithromycin (12/18), + Vancomycin (12/19), stopped Azithro after three 500mg doses. - blood culture NGTD - MRSA is neg - legionella and strep pneumo negative - 2V CXR on 12/22 - moderate pleural effusion - probably worse from admission (now hydrated) - discussed with general surgery for thoracentesis - we decided to do outpatient CT in 1 week and arrange thora if needed at that time. - d/c rocephin and vanc on 12/22 - starting cefuroxime 500mg BID on 12/22 - complete 10 day total course (needs enough to get thru am dose on 12/28) Status: Acute (3) Pleural effusion: Problem comment: - likely source of R chest wall pain upon admission - off oxygen, may need to see if needs with exertion on 12/23 - 1 week f/u with PCP for CT and surgery consult for Thora if indicated. Status: Acute (4) Atrial fibrillation with RVR: Problem comment: - new onset 12/18/24 - rate improved with one dose of IV Diltiazem in ED - initiated po Eliquis and Metoprolol 12/18 - TTE 12/18 with results below: Final Impressions: 1. Technically limited exam. 2. Normal LV size, normal wall thickness, normal global systolic function with an estimated EF of 55 - 60%. 3. Right ventricular cavity size is moderately enlarged, global systolic RV function is borderline reduced. 4. Severe biatrial enlargement. 5. No significant valve disease detected. 6. Borderline increased estimated pulmonary pressures by tricuspid regurgitation velocity and right atrial pressure (37 mmHg including RAP of 3 mmHg). Status: Acute (5) Gout: Problem comment: - history of this - on admission, concern for gout flare in R hand, but improved on hospital day 1 without any anti-inflammatories - uric acid is normal. - no further edema or erythema, no skin breakdown Status: Acute (6) Weakness: Problem comment: - multifactorial from issues above, therapies following, blood cultures currently NGTD - improving nicely Status: Acute Subjective Date Seen: 12/22/24 Interval history: Daily Progress Note - Hospital Medicine Day #: 5 CC: hypoxic resp failure; mild CHF exacerbation, CAP 24 HOUR UPDATE: continues to improve. His color, his energy, his dyspnea, humor is all improved. Weaned from high flow and is on NC oxygen with exertion and can be at rest without oxygen. working dx is still CAP with mild/mod CHF exacerbation. RT following, was initially placed on high flow oxygen has weaned to NC oxygen to room air. Aníbal presented with new AFIB and felt to be wet - is on 40mg of IV Furosemide Q8, Metoprolol for rate control, Eliquis for prophylaxis. The lasix was changed to oral daily dosing on 12/21 The R sided chest wall pain that he had on admission (presumably 2/2 Pleural Effusion) is improving and he has no concerns for hospitalist team this morning, other than when can I go home Notable Labs, Micro, Rads, Interventions: Afebrile since arrival. Blood pressure has been low normal. Pulse 70s to 90s, afib Respiratory rate 17 to 18, no respiratory distress. Weight 97.5 kilos this is essentially stable. The 1st weight at 93.8 kilos was a stated weight , not measured. CBC reflects leukocytosis: 19.9-->34.6-->29.9-->24.35 Hemoglobin stable, normal Platelet count normal. Electrolytes are normal SASCHA (likely induced from lasix dosing) is improving. Creat baseline: 0.9-1.0 (he has been given a fair amount of Lasix). 1.1 today. His blood sugar is normal. His lactate has returned to normal with a peak of 2.6. His CRP has peaked 20-40-33.6-->29.7 Procalcitonin is down trending 1.19 -> 1.01 Strep pneumo and Legionella are negative. COVID and flu are negative MRSA is negative A single blood culture negative to date I have reviewed admission CT chest, and echocardiogram. -mild right sided dysfunction; no sign valvular disease or LV dysfunction -scarring; right pleural effusion; bibasilar airspace disease. 2V: 1. Moderate right basilar opacity may represent atelectasis or infection with moderate right pleural effusion. 2. Minimal left basilar opacity may represent atelectasis. Objective: appears stated age; normal speech and interest and conversation Vitals: see above Lungs: right lower lung diminished; crackles, fine. no wheezes. Cardiac: S1S2. Trace edema peripherally Disposition/Potential discharge - Likely home with his wonderful daughters in support Today I spent 50minutes seeing the patient, reviewing Expanse and EPIC notes/diagnostics, discussing the care plan with our care time that includes social work, PT/OT, pharmacy, RT, group home and documenting my impressions and plan in the medical record. Exam Const: Vital Signs, click to edit/add: Vital Signs - 24 hr 12/21/24 15:30 12/21/24 15:30 12/21/24 15:30 Temperature 97.6 F Pulse Rate Pulse Rate [Pulse Oximeter] 92 Respiratory Rate 20 Blood Pressure [Ri ght Arm] 112/58 L Pulse Oximetry 95 93 95 Oxygen Delivery Me thod Room Air Room Air Oxygen Flow Rate Fraction of Inspir ed Oxygen 12/21/24 16:00 12/21/24 16:43 12/21/24 20:10 Temperature Pulse Rate 78 Pulse Rate [Pulse Oximeter] 92 82 Respiratory Rate 20 24 Blood Pressure [Ri ght Arm] 114/94 H Pulse Oximetry 93 Oxygen Delivery Me thod Room Air Oxygen Flow Rate Fraction of Inspir ed Oxygen 12/21/24 20:44 12/21/24 22:30 12/21/24 22:59 Temperature 97.9 F Pulse Rate 82 Pulse Rate [Pulse Oximeter] 92 Respiratory Rate 20 Blood Pressure [Ri ght Arm] 106/73 Pulse Oximetry 86 L 93 Oxygen Delivery Me thod Nasal Cannula Oxygen Flow Rate 3 Fraction of Inspir ed Oxygen 12/21/24 23:00 12/21/24 23:48 12/22/24 02:45 Temperature 97.7 F Pulse Rate Pulse Rate [Pulse Oximeter] 87 Respiratory Rate 20 14 Blood Pressure [Ri ght Arm] 117/80 Pulse Oximetry 95 94 Oxygen Delivery Me thod Nasal Cannula Oxygen Flow Rate 3 Fraction of Inspir ed Oxygen 12/22/24 07:30 12/22/24 08:30 12/22/24 08:49 Temperature 98.4 F Pulse Rate 84 Pulse Rate [Pulse Oximeter] 82 Respiratory Rate 22 22 Blood Pressure [Ri ght Arm] 128/86 Pulse Oximetry 90 90 Oxygen Delivery Me thod Nasal Cannula Room Air Oxygen Flow Rate 2 Fraction of Inspir ed Oxygen 0 12/22/24 11:00 12/22/24 12:00 Temperature 98.6 F Pulse Rate Pulse Rate [Pulse Oximeter] 83 Respiratory Rate 20 [facility] 105/81 Pulse Oximetry 90 90 Oxygen Delivery Me thod Room Air Oxygen Flow Rate Fraction of Inspir ed Oxygen Labs Labs: Laboratory Results - last 24 hr 12/22/24 06:08 WBC 24.35 H RBC 4.50 Hgb 14.3 Hct 44.1 MCV 98 MCH 32 MCHC 32 Plt Count 362 Sodium 138 Potassium 3.2 L Chloride 100 Carbon Dioxide 29 Anion Gap 9 BUN 36 H Creatinine 1.0 Estimated Creat Clear 65.08 Estimated GFR 75 Glucose 121 H Calcium 8.4 C-Reactive Protein 29.7 H
[2024-12-22] MEDS: cefuroxime axetiL 500 MG TABLET PO (18:28)
[2024-12-22] MEDS: SODIUM CHLORIDE 0.9 % (FLUSH) 10 ML SYRINGE 5 ML IVF (20:52)
[2024-12-23 03:00] VITALS: BP 121/78; PULSE 80; RESP 20; TEMP 36; O2SAT 91
[2024-12-23 06:24] LABS: Hematocrit 40.7 % (37.0-53.0); Hemoglobin* 13.4 gm/dL (13.5-17.5); Mean Corpuscular HGB Conc 33 gm/dL (32-36); Mean Corpuscular Hemoglobin 32 pg (26-34); Mean Corpuscular Volume 97 fL (80-100); Platelet Count* 350 K/uL (140-440); Red Blood Count 4.19 m/uL (4.30-5.90); White Blood Count* 24.13 K/uL (4.50-11.00)
[2024-12-23 06:26] LABS: Slide Review Reflex No
--- NOTE | 2024-12-23 06:26 | PC.NURSE ---
End of shift report [id number]: Pleasant and cooperative with cares. Denies any pain, chest pain or SOB. Intermittent productive cough, patient states that he is not bringing up as much as I have been. Lung sounds clear but diminished. BLE non pitting edema, patient tolerating ALICIA stockings. O2 sats 88-94% on room air throughout the night, patient does have O2 sats drop to 87% with exercise but recovers within 30 seconds of rest. Ambulates with SBA with FWW.
[2024-12-23 06:38] LABS: Chloride* 102 mmol/L (96-114); Sodium* 138 mmol/L (135-149)
[2024-12-23 06:39] LABS: Potassium* 3.5 mmol/L (3.6-5.1)
[2024-12-23 06:42] LABS: Anion Gap 8 mEq/L (7-15); Blood Urea Nitrogen* 30 mg/dL (7-30); Calcium* 8.4 mg/dL (8.4-10.6); Carbon Dioxide* 28 mmol/L (20-32); Est. Creatinine Clearance* 65.08; Estimated Glomerular Filt Rate 75 ml/min; Glucose* 119 mg/dL (60-115)
[2024-12-23 07:00] VITALS: BP 136/93; PULSE 71; RESP 20; TEMP 36.3; O2SAT 90; O2SAT 91
[2024-12-23 07:30] LABS: C Reactive Protein* 25.8 mg/dL (0.5-1.0)
[2024-12-23] MEDS: FUROSEMIDE 40 MG TABLET PO (07:48)
[2024-12-23] MEDS: POTASSIUM CHLORIDE 10 MEQ CAPSULE ER 20 MEQ PO (07:48)
[2024-12-23] MEDS: cefuroxime axetiL 500 MG TABLET PO (07:50)
[2024-12-23] MEDS: METOPROLOL SUCCINATE (XL) 50 MG TAB PO (09:27)
[2024-12-23] MEDS: APIXABAN 5 MG TABLET PO (09:27)
--- NOTE | 2024-12-23 14:23 | PC.NURSE ---
End of shift-- Very pleasant and cooperative, alert and oriented patient discharged to home via wheelchair at approximately 1420. VSS and pt is afebrile. SPO2 maintained >88% on RA at rest and decreases mildly with exertion, however, pt recovers quickly. LS diminished in right base, a few fine crackles noted in left base, otherwise CTA. Occasional productive cough noted. HR irregular, as per known rate controlled afib. He denied nausea, tolerated a regular diet without difficulty and had a continent BM this morning. He ambulated in hallway and in room with SBA, belt and walker and tolerated it fair. Pt did become mildly SOB with exertion, but denied feeling SOB. Discharge education was provided including diagnosis info, symptoms to report, medications and follow up plan. All questions answered and SL was removed with tip intact.
== END 2024-12-23 14:17 | disposition home or self-care (01) | DRG 189 ==
LOC: ED 12:04 → MEDSURG 13:40
PROVIDERS: Family Medicine; Admitting Provider Family Medicine; Emergency Provider Student in an Organized Health Care Education/Training Program; Visit Provider Family Medicine
DX: J96.01 Acute respiratory failure with hypoxia (principal); J18.9 Pneumonia, unspecified organism; I50.31 Acute diastolic (congestive) heart failure; J91.8 Pleural effusion in other conditions classified elsewhere; I48.91 Unspecified atrial fibrillation; M10.9 Gout, unspecified; R53.1 Weakness
CPT/HCPCS: 36415; 71045; 71046; 71275; 74177; 80048; 80053; 81001; 82248; 82565; 82803; 83605; 83735; 83880; 84145; 84443; 84484; 84550; 85025; 85027; 86140; 87040; 87081; 87449; 87493; 87631; 87899; 93005; 93306; 94664; 94761; 97110; 97112; 97116; 97161; 97165; 97530; 97535; 99285; 99291; A9270; J0696; J1940; J2270; J3372; J3475; J7030; Q9957; Q9967

== ENCOUNTER 2025-01-18 11:04 | Outpatient (CLI) | payer MEDICARE, SELFPAY ==
[2025-01-18 11:15] VITALS: BP 113/70; PULSE 69; RESP 18; O2SAT 96
--- NOTE | 2025-01-18 11:56 | PM.GSCN ---
History of Present Illness Consult details Date Seen: 01/18/25 Consult date: 01/18/25 Narrative: Patient presented for evaluation of thoracentesis. He had a recent hospitalization in December for pneumonia. This was complicated by development of a right pleural effusion. Since leaving the hospital he does report persistent fatigue and shortness of breath with walking. He also had pain on the right side of his chest when he takes a deep breath. He is not currently on home oxygen. No fevers at home. He does take Eliquis, but has been holding his blood thinner for this procedure. On chart review through the [facility] system he had repeat CT imaging showing an increase in his known right-sided pleural effusion. There was some air-fluid levels within the space. Patient denies any previous procedures of thoracentesis. Review of Systems Status of ROS: Reports: 6 or more systems reviewed and unremarkable except as noted in History and below [facility] Medical History (Updated 12/31/24 @ 00:00 by Reba Garcia) Gout ?M10.9 - Gout, unspecified (ICD-10) Surgical History (Updated 12/18/24 @ 14:17 by Krystle Spencer MD) History of cataract surgery ?Z98.49 - Cataract extraction status, unspecified eye (ICD-10) Social History (Updated 12/18/24 @ 14:17 by Krystle Spencer MD) Narrative: Lives alone in [place], in summer of 2023. Four adult daughters, Pascale would be medical decision maker if needed. Remote history of smoking, no alcohol use. Requests full code status. What is your current living situation?: I presently have a place to live Problems where you live: no known problems Problems where you live details: no known problems In the past 12 months, utilities in danger of being shut off: no In past 12 months, lack of transportation kept you from medical appts, meetings, work, or getting things needed for daily living: no In the past 12 mos, have been you worried that your food would run out before you had money to buy more?: never true In the past 12 mos, the food you bought just didn't last and you didn't have money to buy more?: never true Highest level of school completed/degree received: high school graduate Smoking Status: Former smoker Do you use any of these nicotine containing products: None How often do you have a drink containing alcohol: never How many standard drinks containing alcohol do you have on a typical day: 1 or 2 How often do you have six or more drinks on one occasion: Never AUDIT-C Alcohol total score: 0 Non-prescribed substance use: denies use Caffeine: Yes How often does anyone, including family, friends and others, physically hurt you: never How often does anyone, including family, friends and others, insult or talk down to you: never How often does anyone, including family, friends and others, threaten you with harm: never How often does anyone, including family, friends and others, scream or curse at you: never service: No Meds Home Medications and Allergies Allergies Allergy/AdvReac Type Severity Reaction Status Date / Time No Known Drug Allergies Allergy Verified 12/18/24 14:23 Exam Narrative: Exam Narrative: General: Alert and oriented, no acute distress Respiratory: Equal breath rise, maintained on room air CV: Well perfused Const: Vital Signs, click to edit/add: Vital Signs - 24 hr 01/18/25 11:15 Pulse Rate [Left P ulse Oximeter] 69 Respiratory Rate 18 Blood Pressure [Ri ght Arm] 113/70 Pulse Oximetry 96 Oxygen Delivery Me thod Room Air Results Labs Labs: No recent labs. Imaging CT scan - chest: report reviewed and image reviewed Additional studies: CT chest 12/27/2024 Findings: Right pleural effusion is increased when compared to the prior study. Air within the pleural space noted, likely from thoracentesis, recommend clinical correlation. Calcified right-sided pleural nodules. Cirrhotic morphology of the liver. Atherosclerotic changes. Right renal cysts. Cardiomegaly. No pericardial effusion. Visualized thyroid unremarkable. Similar upper limits of normal central mediastinal lymph nodes. COPD/emphysema. Bronchiectasis in both lower lobes and right middle lobe with associated bronchial wall thickening and patchy areas of mucous plugging. Biapical pleural-parenchymal scarring. Impression: Right pleural effusion has increased in the interim. Air in the pleural space is likely related to intervention, correlate clinically. Progress Note:A&P Assessment and plan (1) Pleural effusion: Status: Acute Assessment and Plan: Patient is an 84-year-old male who presents with a persistent right-sided pleural effusion following pneumonia. On CT imaging and ultrasound the fluid collection does appear well organized with multiple septations. It is not amendable to drainage today. Given the patient's persistent symptoms would recommend further evaluation by thoracic surgery. A referral was placed for the patient and his primary care provider updated. Patient is okay to resume his blood thinner and any prior medications.
== END 2025-01-18 11:05 | disposition home or self-care (01) ==
LOC: US 11:06
PROVIDERS: Visit Provider Surgery
DX: J90 Pleural effusion, not elsewhere classified (principal)
CPT/HCPCS: 76604

== ENCOUNTER 2025-08-01 09:31 | Emergency (ER) | payer MEDICARE, SELFPAY ==
[2025-08-01] VITALS (10 sets, daily range): BP systolic 117–129; BP diastolic 61–65; PULSE 51–67; RESP 22–24; TEMP 36.2; O2SAT 92–98; BMI 24.3
--- OUTSIDE RECORDS SUMMARY | 2025-08-01 09:33 | XMS_ITS | Clinical Summary ---
Author Organization [facility] Address [address] [place] [id number] Care Team Providers Care Honest John [employer]ocket [employer] Member Name Role Phone Dandre Gruber MD Primary Care P rovider Allergies No known active allergies Medications colchicine 0.6 mg tablet 03/27/20 25 Active albuterol HFA (PRO-AIR; VENTOLIN; PROVENTIL) 90 mcg/actuation inhalerIndication s:Adult bronchiectasis (HC),Obstructive emphysema (HC) Inhale 1-2 Puffs by mouth every 4 hours if needed for Shortness Of Breath or Wheezing. 3 Each 3 06/11/20 25 Active umeclidinium-luis manuel nteroL (ANORO ELLIPTA) 62.5-25 mcg/actuation inhalerIndication s:Obstructive emphysema (HC),SOB (shortness of breath) Inhale 1 Puff by mouth once daily. Discard inhaler 6 weeks after opening or when the counter reads '0' (after all blisters have been used), whichever comes first. 60 Each 2 07/06/20 25 Active apixaban (Eliquis) 5 mg tabletIndications :Atrial fibrillation, unspecified type (HC) TAKE 1 TABLET (5 MG) BY MOUTH TWO TIMES DAILY. 180 Tablet 1 07/19/20 25 Active metoprolol succinate (TOPROL XL) 50 mg sustained-release tabletIndications :Atrial fibrillation, unspecified type (HC) Take 1 Tablet (50 mg) by mouth once daily. 90 Tablet 1 07/19/20 25 Active allopurinoL (ZYLOPRIM) 100 mg tabletIndications :History of gout TAKE 100MG BY MOUTH ONCE DAILY 90 Tablet 1 07/19/20 Active Eliquis 5 mg tabletIndications :deep venous thrombosis,DO NOT TAKE ELIQUIS UNTIL 02/03. MAY RESUME NORMAL DOSING AT THIS TIME. Take 1 Tablet (5 mg) by mouth two times daily. 180 Tablet 1 01/13/20 25 2024 Discontinued metoprolol succinate 50 mg sustained-release tabletIndications :Atrial fibrillation, unspecified type (HC) Take 1 Tablet (50 mg) by mouth once daily. 90 Tablet 1 01/13/20 25 2024 Discontinued allopurinoL 100 mg tabletIndications :History of gout TAKE 100MG BY MOUTH ONCE DAILY 90 Tablet 04/09/202024 Discontinued umeclidinium (INCRUSE ELLIPTA) 62.5 mcg/actuation inhalerIndication s:Obstructive emphysema (HC) Inhale 1 Puff by mouth once daily. Discard inhaler 6 weeks after opening or when the counter reads '0' (after all blisters have been used), whichever comes first. 30 Each 3 06/20/202024 Discontinued(* Med complete/Regim en complete/Level of care change) Active Problems Problem Noted Date Diagnosed Date Adult bronchiectasis 04/20/2025 Obstructive emphysema 04/20/2025 Pleural effusion on right 01/28/2025 Empyema of lung 01/28/2025 Gout 01/28/2025 Heart failure 01/28/2025 Overview (04/11/2025): AI Summary: The patient had a history of diastolic heart failure and was admitted on 01/28/2025 with right pleural effusion and empyema. The patient was hospitalized in 12/21/2024 with acute respiratory failure in the setting of A-fib with RVR, acute diastolic heart failure, and pneumonia. The patient also had chronic heart failure with preserved ejection fraction. 12/18/24: LVEF 55 - 60% 02/09/25: BP 109/66 02/09/25: HR 86 /min On meds: metoprolol succinate Recent encounter dx: 02/09/25: Appointment - [facility] 12/18/24: Appointment - [facility] 12/17/24: Support OP Encounter - [facility] - Various Locations Recent studies: 12/18/24: ECHO TRANSTHORACIC COMPLETE by Krystle Spencer MD, Juan Nunes MD ... [+] Indication for study: A-fib (HC); CHF (congestive heart failure) (HC) Cardiac Rhythm: Atrial fibrillation.Study quality: Technically limited. Recent notes: 02/09/25: Progress Notes - Nursing Notes by Dandre Gruber MD ... [+] ? Diastolic heart failure (HC) I50.30 ... [+] Chronic diastolic heart failure (HC) I50.32 BASIC METABOLIC PANEL 02/01/25: Discharge Summary - ATTENDING PROGRESS NOTE by Servando Obregon MD ... [+] Diastolic heart failure (HC) ... [+] Celso Dumas is a(n) 84 y.o. with a history of gout, atrial fibrillation, diastolic heart failure, and right pleural effusion, who was admitted on 01/28/2025 with right pleural effusion and empyema. 01/31/25: Progress Notes - ATTENDING PROGRESS NOTE - Internal Medicine // ANW Hospitalist Service by Servando Obregon MD ... [+] Hospitalized 12/21/2024 with acute respiratory failure in setting of A- fib with RVR, acute diastolic heart failure, and admitted for pneumonia. ... [-] Chronic heart failure with preserved ejection fraction 01/29/25: Consults by CIPRIANO Wadedll ... [+] PCP: Dandre Gruber MD [phone] HPI: Mr. Celso Dumas is a pleasant 84 year old gentleman with past medical history significant for gout, atrial fibrillation (on Eliquis), heart failure and right pleural effusion who was admitted for chest tube placement. ... [+] He was referred to Dr. Zhong for clinic consultation on 01/22 for loculated right pleural effusion that was found during recent hospital admission in December for acute heart failure in setting of new afib with RVR. Abnormal finding on lung imaging 01/03/2025 Overview (01/03/2025): COPD/ emphysematous lungs on CT 12/2024 Atrial fibrillation 12/25/2024 Overview (04/11/2025): AI Summary: Atrial fibrillation was in the patient's history and the patient remained in atrial fibrillation. The patient was hospitalized in 12/2014 with acute respiratory failure, new atrial fibrillation with RVR, and community-acquired pneumonia and was found during recent hospital admission in December for acute heart failure in setting of new afib with RVR. The patient was started on metoprolol and Eliquis for atrial fibrillation. 02/09/25: HR 86 /min 01/29/25: INR 1.2 On meds: apixaban, metoprolol succinate, potassium chloride Recent encounter dx: 02/09/25: Appointment - [facility] 01/28/25: Discharge - [facility], [facility], [id number], [id number] / 01 01/12/25: Appointment - [facility] 12/27/24: Appointment - [facility] 12/18/24: Appointment - [facility] Recent studies: 12/27/24: Corresp-EKG Results - INCOMING RECORDS-EKG, [facility], 12/27/2024 ... [+] Atrial fibrillation with rapid ventricular response with premature ventricular or aberfantly conducted complexes Right bundle branch block Abnormal ECG 12/18/24: ECHO TRANSTHORACIC COMPLETE by Krystle Spencer MD, Juan Nunes MD ... [+] Indication for study: A-fib (HC); CHF (congestive heart failure) (HC) Cardiac Rhythm: Atrial fibrillation.Study quality: Technically limited. 12/18/24: Tech Impression - PRELIM/ORDER/DEMO ... [-] new afib Recent notes: 02/09/25: Progress Notes - Nursing Notes by Dandre Gruber MD ... [+] ? Atrial fibrillation (HC) I48.91 ... [+] Permanent atrial fibrillation (HC) I48.21 BASIC METABOLIC PANEL ... [+] He remains in atrial fibrillation. 02/01/25: Discharge Summary - ATTENDING PROGRESS NOTE by Servando Obregon MD ... [+] Atrial fibrillation (HC) ... [+] Celso Dumas is a(n) 84 y.o. with a history of gout, atrial fibrillation, diastolic heart failure, and right pleural effusion, who was admitted on 01/28/2025 with right pleural effusion and empyema. ... [+] Patient was hospitalized in [place] 12/2024 with acute respiratory failure, new atrial fibrillation with RVR and community-acquired pneumonia. ... [+] For diagnoses: Atrial fibrillation, unspecified type (HC) 01/31/25: Progress Notes - ATTENDING PROGRESS NOTE - Internal Medicine // ANW Hospitalist Service by Servando Obregon MD ... [+] Patient was hospitalized in [place] 12/2014 with acute respiratory failure, new atrial fibrillation with RVR and community-acquired pneumonia. ... [+] Currently in atrial fibrillation, rate controlled. 01/29/25: Consults by CIPRIANO Waddell ... [+] This is a 84-year-old male with history of gout, atrial fibrillation on Eliquis well-known to me previously seen last week in clinic for evaluation of a complex right pleural effusion which is a suspected empyema. ... [+] 84-year-old male with 10-week history of dyspnea following a admission for respiratory failure complicated by atrial fibrillation. ... [+] PCP: Dandre Gruber MD [phone] HPI: Mr. Celso Dumas is a pleasant 84 year old gentleman with past medical history significant for gout, atrial fibrillation (on Eliquis), heart failure and right pleural effusion who was admitted for chest tube placement. ... [+] He was referred to Dr. Zhong for clinic consultation on 01/22 for loculated right pleural effusion that was found during recent hospital admission in December for acute heart failure in setting of new afib with RVR. ... [+] He was started on Metoprolol and Eliquis for his afib. 01/12/25: Progress Notes - Office visit by Dandre Gruber MD ... [+] He is uncertain about the status of his atrial fibrillation. ... [+] Atrial fibrillation, unspecified type (HC) ... [-] Atrial fibrillation. Resolved Problems Problem Noted Date Diagnosed Date Resolved Date Abnormal liver diagnostic imaging 01/03/2025 07/05/2025 Overview (01/03/2025): Cirrhotic appearing liver on CT 12/2024 Encounters Date Type Department Care Team Description 07/31/2025 Nurse Triage [facility] [place] [address] Dandre Gruber MD Shortness Of Breath 07/23/2025 10:30 AM CDT Ancillary Procedure [address] [place] [address] 07/23/2025 10:15 AM CDT Orders Only [address] [place] [address] [place], [place] <No scans attached> 07/23/2025 Travel 07/17/[address] [address] Dandre Gruber MD Refill Request (Eliquis, Metoprolol Succinate, Potassium Chloride, Furosemide, Allopurinol) 07/06/[address] [address] Dandre Gruber MD Results 07/05/2025 9:45 AM CDT Ancillary Procedure [address] [address] 07/05/2025 9:10 AM CDT Office Visit [address] [address] Dandre Gruber MD Shortness Of Breath (inhalers are helping, having to stop and take breaks when walking ) 07/05/2025 Travel 07/02/2025 Nurse Triage [address] [address] Dandre Gruber MD Shortness Of Breath 06/12/[address] [address] Dandre Gruber MD Prior Authorization (tiotropium bromide (SPIRIVA RESPIMAT) 2.5 mcg/actuation mist for inhalation - DENIED) 06/11/2025 Refill [facility] [address] [place] [address] Dandre Gruber MD Refill Request (albuterol HFA (PRO-AIR; VENTOLIN; PROVENTIL) 90 mcg/actuation inhaler ) from Last 3 Months Immunizations Immunization Administration Dates Next Due Hepatitis B, Unspecified 07/25/1991,02/14/1991,0 01/10/1991 Influenza, High-dose Inactivated 09/04/2019,07/05 Pneumococcal Conj 20-valent (Prevnar 20) 025 Pneumococcal conj 13-Valent (Prevnar 13) 015 Tdap 05/01/2015 Family History Relation Name Status Comments Father Mother Social History Tobacco Use Types Packs/Day Years Used Date Smoking Tobacco: Former Cigarettes 0.3 52.8 0 1966 - 10/04/2019 Passive Smoke Exposure: Past Smokeless Tobacco: Never Tobacco Cessation:Counseling Given: Yes Alcohol Use Standard Drinks/Week Comments Yes 0 (1 standard drink = 0.6 oz pur e alcohol) beer a day PHQ-2 Answer Date Recorded PHQ-2 TOTAL SCORE 1 04/11/2025 Social Connections Answer Date Recorded Do you often feel lonely or isolated from those around you? 0 01/28/2025 Financial Resource Strain Answer Date R ecorded Difficulty of Paying Living Expenses 3 01/12/2025 Difficulty of Paying Living Expenses Not on file 01/12/2025 Food Insecurity Answer Date Recorded Do you worry your food will run out before you are able to buy more? 1 01/28/2025 Transportation Needs Answer Date Record ed Does lack of transportation keep you from medica l appointments? 1 01/28/2025 Does lack of transportation keep you from work, meetings or getting things that you need? 1 01/28/2025 Housing Stability Answer Date Recorded What is your housing situation today? 1 01/28/2025 Interpersonal Safety Answer Date Record ed Are you being hit, kicked, p ushed or yelled at (see row info)? No 01/29/2025 Interpersonal Safety Abuse 12 - 18 Not on file 01/29/2025 Interpersonal Safety Ambulatory Vulnerability No t on file 01/29/2025 Utilities Answer Date Recorded Do you have trouble paying f or utilities (for example, heat, electricity, water, phone)? 1 01/28/2025 Sex and Gender Information Value Date Recorded Sex Assigned at Not on file Legal Sex Male 5:24 AM [employer] Gender Identity Not on file Sexual Orientation Not on file Obstetrics History Last Filed Vital Signs Vital Sign Reading Time Taken Comments Blood Pressure 121/78 07/05/2025 9:09 AM CDT Pulse 67 07/05/2025 9:09 AM CDT Temperature 36.6 C (97.8 F) 02/09/2025 11:01 AM CDT Respiratory Rate 19 02/01/2025 8:55 AM CDT Oxygen Saturation 98% 07/05/2025 9:09 AM CDT Inhaled Oxygen Concentration - - Weight 91.9 kg (202 lb 11.2 oz) 07/05/2025 9:09 AM CDT Height 188.2 cm (6' 2.09) 04/11/2025 9:59 AM CD T Body Mass Index 25.96 04/11/2025 9:59 AM CDT Plan of Treatment Health Maintenance Due Date Last Done Comments Zoster (shingles) series for age 50+ (1 of 2) 1990 RSV vaccine for adults or pr egnancy (1 - 1-dose 75+ series) 12/27/2015 Tetanus booster 05/01/2025 05/01/2015 Influenza Vaccine (#1) 2025 09/04/2019, 2017 BMI (ht and wt on same day) for age 18+ 04/11/2026 04/11/2025, 01/22/2025 Depression screening for age 12+ 04/11/2026 04/11/20 Medicare Wellness for age 65+ 04/12/2026 04/11/2025 Hepatitis B series for 19+ Completed 07/25, 02/14/1991, 01/10/1991 Pneumococcal series for age 50+ Completed , 05/01/2015 Procedures Procedure Name Priority Date/Time Associated Diagnosis Comments CT CHEST PE STUDY Routine 07/23/2025 11: 03 AM CDT SOB (shortness of breath) Empyema of lung (HC) Pleural effusion on right CREATININE,ISTAT Routine 07/23/2025 10:3 0 AM CDT SOB (shortness of breath) Empyema of lung (HC) Pleural effusion on right Observation or evaluation for suspected condition XR CHEST 2 VIEWS PA AND LATERAL Routine 07/05/2025 9:55 AM CDT SOB (shortness of breath) from Last 3 Months Results * CT CHEST PE STUDY (07/23/2025 11:03 AM CDT) Anatomical Region Laterality Modality CHEST, THORAX, HEART Computed To mography 07/25/2025 7:52 AM CDT Impressions 07/25/2025 7:52 AM CDT 1. No pulmonary embolism. 2. Unchanged if not slightly worsened peribronchial and alveolar infiltrates in the lung bases with a stable minimal right basilar pleural effusion. 3. No other changes compared to the prior exam. Please note that all CT scans at this facility use dose modulation, iterative reconstruction, and/or weight-based dosing when appropriate to reduce radiation dose to as low as reasonably achievable. Dictated by Zach Miller MD @ 07/25/2025 7:52:53 AM (Electronically Signed) Narrative 07/25/2025 7:52 AM CDT For Patients: As a result of the Century Cures Act, medical imaging exams and procedure reports are released immediately into your electronic medical record. You may view this report before your referring provider. If you have questions, please contact your health care provider. INDICATION: Shortness of breath. Emphysema of lungs. Pleural effusion. TECHNIQUE: CT chest PE was acquired with 100 cc Omnipaque 350 IV contrast. Coronal and MIP reconstructions were performed. COMPARISON: April 18, 2025. FINDINGS: Heart and vasculature: Contrast opacification of the pulmonary arterial tree is adequate. No sign of pulmonary embolism. There is cardiomegaly. Great vessels normal in caliber. Lungs and pleura: Persistent severe bronchial thickening and infiltrates in the lung bases. Stable emphysema changes. Minimal right basilar pleural effusion is unchanged. No pneumothorax. Lymph nodes/mediastinum: No mediastinal, hilar, or axillary adenopathy. Chest wall: No masses. Upper abdomen: No acute or significant findings. Bones: Unremarkable for age. Procedure Note Zach Miller MD - 07/25/2025 For Patients: As a result of the Cures Act, medical imagingexams and procedure reports are released immediately into your electronicmedical record. You may view this report before your referring provider.If you have questions, please contact your health care provider. INDICATION: Shortness of breath. Emphysema of lungs. Pleural effusion. TECHNIQUE: CT chest PE was acquired with 100 cc Omnipaque 350 IV contrast. Coronaland MIP reconstructions were performed. COMPARISON: April 18, 2025. FINDINGS: Heart and vasculature: Contrast opacification of the pulmonary arterialtree is adequate. No sign of pulmonary embolism. There is cardiomegaly.Great vessels normal in caliber. Lungs and pleura: Persistent severe bronchial thickening and infiltratesin the lung bases. Stable emphysema changes. Minimal right basilar pleuraleffusion is unchanged. No pneumothorax. Lymph nodes/mediastinum: No mediastinal, hilar, or axillary adenopathy. Chest wall: No masses. Upper abdomen: No acute or significant findings. Bones: Unremarkable for age. IMPRESSION: 1. No pulmonary embolism. 2. Unchanged if not slightly worsened peribronchial and alveolarinfiltrates in the lung bases with a stable minimal right basilar pleuraleffusion. 3. No other changes compared to the prior exam. Please note that all CT scans at this facility use dose modulation,iterative reconstruction, and/or weight-based dosing when appropriate toreduce radiation dose to as low as reasonably achievable. Dictated by Zach Miller MD @ 07/25/2025 7:52:53 AM (Electronically Signed) us Dandre Gruber MD CT Final Result * POCT Creatinine (07/23/2025 10:30 AM CDT) POCT,CREATININ E, ISTAT 1.2 0.6 - 1.3 mg/dL 07/23/2025 10:44 AM CDT [facility] Blood BLOOD SPECIMEN / Unknown [facility] / Unknown 07/23/2025 10:30 AM CDT 07/23/2025 10:35 AM CDT Dandre Gruber MD CHEMISTRY Final Result [facility] [address] [place] [address], [place] [phone] [facility] [address] [place] [address], [place] [phone] * XR CHEST 2 VIEWS PA AND LATERAL (07/05/2025 9:55 AM CDT) Anatomical Region Laterality Modality CHEST, THORAX, Lung, HEART Compu daphney Radiography 07/05/2025 2:43 PM CDT Impressions 07/05/2025 2:43 PM CDT Increased right pleural fluid within the fissure. Dictated by Carl Dean MD @ 07/05/2025 2:43:24 PM (Electronically Signed) Narrative 07/05/2025 2:43 PM CDT For Patients: As a result of the Cures Act, medical imaging exams and procedure reports are released immediately into your electronic medical record. You may view this report before your referring provider. If you have questions, please contact your health care provider. INDICATION: Shortness of breath TECHNIQUE: Chest 2 views COMPARISON: CT 04/18/2025 FINDINGS: Increased loculated pleural fluid within the right-sided fissure. Chronic volume loss right lower lobe with calcified granuloma. Chronic small amount of pleural fluid in the posterior right costophrenic angle. Left lung is relatively clear with changes of chronic bronchitis noted along with emphysema. Procedure Note Carl Dean MD - 07/05/2025 For Patients: As a result of the Cures Act, medical imagingexams and procedure reports are released immediately into your electronicmedical record. You may view this report before your referring provider.If you have questions, please contact your health care provider. INDICATION: Shortness of breath TECHNIQUE: Chest 2 views COMPARISON: CT 04/18/2025 FINDINGS: Increased loculated pleural fluid within the right-sided fissure. Chronicvolume loss right lower lobe with calcified granuloma. Chronic smallamount of pleural fluid in the posterior right costophrenic angle. Leftlung is relatively clear with changes of chronic bronchitis noted alongwith emphysema. IMPRESSION: Increased right pleural fluid within the fissure. Dictated by Carl Dean MD @ 07/05/2025 2:43:24 PM (Electronically Signed) Dandre Tatum-Sammi Gruber MD GENERAL IMAGING Final Result from Last 3 Months Insurance [id number] [place] [id number] [facility] MEDICARE ADVANTAGE MEDICARE PART A HB ONLY [id number] [place] [id number] Advance Directives Documents on File Type Date Recorded Patient Circuit Board Drafter Expl anation Healthcare Directive 04/18/2025 9:42 AM He althcare Directive 04-18-25 * Full Code (Latest Code Status on File) Date Activated Date Inactivated Comments 01/28/2025 6:21 PM 02/01/2025 2:41 PM Question Answer Comments Code Status Discussion: Reviewed Preferences Care Teams Honest John [employer] Member Relationship Specialty Start Date End Date Dandre Gruber MD [address] [place] [address] PCP - General Family Practice 12/27/24
--- NOTE | 2025-08-01 10:06 | ED.GENADULT ---
HPI - General Adult General Chief complaint: Arrhythmia/Palpitations Stated complaint: Shortness of breath Time Seen by Provider: 08/01/25 09:42 History of Present Illness HPI narrative: Pt has been having SOB since having pneumonia in December. Has been seen in clinic, has been admitted here, and also had '[facility] removed [facility] lung' [place] [facility] . Pt called clinic to make appt and was sent here. Breathing is more labored with exertion, however remains even when sleeping per daughter. Sats 92-94% during triage 84-year-old man presenting to the emergency department with increasing shortness of breath. No fatigue but he is more short of breath just walking around in his house. Did have pneumonia in December. He also apparently had a pleural effusion for which she seems to report receiving a therapeutic tap in March or April. He has not had any fever. Over the last couple of weeks has had some mild cough and congestion. No chest pain. No abdominal pain. No nausea. Later questioning does reveal that occasionally his stools are dark. Weight is down on review of records. Related Data Home Medications ?Medication ?Instructions ?Recorded ?Confirmed allopurinol 100 mg tablet 100 mg PO DAILY 03/27/25 08/01/25 albuterol sulfate 90 mcg/actuation inhalation 08/01/25 aerosol inhaler umeclidinium 62.5 mcg-vilanterol 1 ea inhalation DAILY 08/01/25 08/01/25 25 mcg/actuation powdr for inhalation (Anoro Ellipta) Previous Rx's ?Medication ?Instructions ?Recorded apixaban 5 mg tablet (Eliquis) 5 mg PO BID #60 tabs 12/22/24 metoprolol succinate 50 mg 50 mg PO DAILY #30 tabs 12/22/24 tablet,extended release 24 hr amoxicillin 875 mg-potassium 1 tab PO BID 7 days #14 tabs 08/01/25 clavulanate 125 mg tablet azithromycin 500 mg tablet See Rx Instructions PO .COMPLEX #3 08/01/25 tabs Allergies Allergy/AdvReac Type Severity Reaction Status Date / Time No Known Drug Allergies Allergy Verified 08/01/25 09:42 Review of Systems Status of ROS: Reports: 6 or more systems reviewed and unremarkable except as noted in History and below [facility] Medical History Gout ?M10.9 - Gout, unspecified (ICD-10) Surgical History History of cataract surgery ?Z98.49 - Cataract extraction status, unspecified eye (ICD-10) Social History Narrative: Lives alone in [place], in summer. Four adult daughters, Pascale would be medical decision maker if needed. Remote history of smoking, no alcohol use. Requests full code status. What is your current living situation?: I presently have a place to live Problems where you live: no known problems Problems where you live details: no known problems In the past 12 months, utilities in danger of being shut off: no In past 12 months, lack of transportation kept you from medical appts, meetings, work, or getting things needed for daily living: no In the past 12 mos, have been you worried that your food would run out before you had money to buy more?: never true In the past 12 mos, the food you bought just didn't last and you didn't have money to buy more?: never true Highest level of school completed/degree received: high school graduate Smoking Status: Former smoker Do you use any of these nicotine containing products: None How often do you have a drink containing alcohol: 4 or more times a week How many standard drinks containing alcohol do you have on a typical day: 1 or 2 How often do you have six or more drinks on one occasion: Never AUDIT-C Alcohol total score: 4 Non-prescribed substance use: denies use Caffeine: Yes How often does anyone, including family, friends and others, physically hurt you: never How often does anyone, including family, friends and others, insult or talk down to you: never How often does anyone, including family, friends and others, threaten you with harm: never How often does anyone, including family, friends and others, scream or curse at you: never service: No Exam Narrative: Exam Narrative: Pleasant. Seated on head of the bed. Does not appear to be in distress. Does sound rather congested in the nasopharynx. There is no facial swelling or erythema appreciated. Lungs appear clear with breath sounds throughout until you get to the right lower lung field where there are clearly diminished breath sounds. Compression stockings in place. Const: Vital Signs, click to edit/add: Vital Signs - 24 hr 08/01/25 09:35 08/01/25 10:27 08/01/25 11:20 Temperature 97.1 F L Pulse Rate 58 L Pulse Rate [Left P ulse Oximeter] 67 Respiratory Rate 24 Blood Pressure Blood Pressure [Ri ght Upper Arm] 117/61 Pulse Oximetry 92 92 92 Oxygen Delivery Me thod Room Air 08/01/25 11:30 08/01/25 11:43 08/01/25 11:45 Temperature Pulse Rate 53 L 63 51 L Pulse Rate [Left P ulse Oximeter] Respiratory Rate 22 Blood Pressure 129/65 Blood Pressure [Ri ght Upper Arm] Pulse Oximetry 96 Oxygen Delivery Me thod Room Air 08/01/25 12:00 08/01/25 12:15 08/01/25 12:30 Temperature Pulse Rate 53 L 53 L 54 L Pulse Rate [Left P ulse Oximeter] Respiratory Rate Blood Pressure Blood Pressure [Ri ght Upper Arm] Pulse Oximetry 96 94 98 Oxygen Delivery Me thod 08/01/25 12:45 Temperature Pulse Rate 60 Pulse Rate [Left P ulse Oximeter] Respiratory Rate Blood Pressure Blood Pressure [Ri ght Upper Arm] Pulse Oximetry 96 Oxygen Delivery Me thod Documenting provider has reviewed patient's vital signs: yes Course Vital Signs Vital signs: Initial Vital Signs Temperature 97.1 F L 08/01/25 09:35 Temperature Source Temporal Artery Scan 08/01/25 09:35 Pulse Rate 67 08/01/25 09:35 Respiratory Rate 24 08/01/25 09:35 Blood Pressure 117/61 08/01/25 09:35 Blood Pressure Mean 79 08/01/25 09:35 Blood Pressure Position Sitting 08/01/25 09:35 Pulse Oximetry 92 08/01/25 09:35 Oxygen Delivery Method Room Air 08/01/25 09:35 Vital Signs Temperature 97.1 F L 08/01/25 09:35 Pulse Rate 67 08/01/25 09:35 Respiratory Rate 24 08/01/25 09:35 Blood Pressure 117/61 08/01/25 09:35 Pulse Oximetry 92 08/01/25 09:35 Oxygen Delivery Method Room Air 08/01/25 09:35 Temperature 97.1 F L 08/01/25 09:35 Pulse Rate 60 10/29/25 12:45 Respiratory Rate 22 08/01/25 11:43 Blood Pressure 129/65 08/01/25 11:43 Pulse Oximetry 96 08/01/25 12:45 Oxygen Delivery Method Room Air 08/01/25 11:43 Medications Administered Medications: Discontinued Medications Generic Name Dose Route Start Last Admin Trade Name Jaiq PRN Reason Stop Dose Admin Azithromycin 500 mg 08/01/25 12:56 08/01/25 13:02 Azithromycin 250 Mg Tablet PO 08/01/25 12:57 500 mg ONCE ONE Administration Ceftriaxone Sodium 2 gm/ 100 mls @ 200 mls/hr 08/01/25 12:47 08/01/25 13:34 Sodium Chloride IVPB 08/01/25 12:48 Infused ONCE ONE Infusion Medical Decision Making MDM Narrative Medical decision making narrative: With concerns of heart failure and pleural effusion accumulation. Pneumonia? Metoprolol might be playing a role as well in shortness of breath; exercise intolerance. mr. Dumas is clear to note that is not actually fatigued. He later said he felt like this last time he had pneumonia. Cardiac rhythm related? RVR? Chronically in atrial fibrillation. Anemia? Will check standard labs and chest x-ray to begin. Monitor on residential monitor and oximetry. Two-view chest x-ray independently reviewed by me looks to show clearing of usual right pleural effusion though there is still some infiltrative process here perhaps. Radiology over-read below INDICATION: Increasing dyspnea COMPARISON: December 22, 2024 and June 30, 2019 TECHNIQUE: PA and lateral views of the chest were acquired FINDINGS: TUBES AND LINES: None. HEART AND MEDIASTINUM: Enlarged heart. Tortuous aorta appearance similar appearance to the prior study.. LUNGS AND PLEURAL SPACES: Hyperinflation probably due to COPD. Left basilar opacity. Part of this is chronic though the appearance is somewhat worsened suggesting acute on chronic disease.Right base opacity is probably partially pleural-parenchymal scarring though I suspect an acute infiltrate in this area as well. Small right effusion. OSSEOUS STRUCTURES: Age-appropriate appearance. No acute focal finding. IMPRESSION: 1. Enlarged heart. Tortuous aorta. Similar appearance to the prior study. 2. Background pattern likely due to COPD. 3. Left basilar opacity. Part of this is probably chronic though I suspect acute on chronic disease. Suspect pneumonia. 4. Right basilar opacity probably due to pleural and parenchymal scarring. An acute infiltrate is possible at the right base when compared to the prior study. Minimal right pleural fluid or right pleural thickening. Dictated by Ralph Martinez MD @ 08/01/2025 10:49:49 AM Labs with reassuring white count however there is been a drift in his hemoglobin from 7 months ago. Hemoglobin was 13.4 there and 9.3 today. He denies hematochezia. Does however note that sometimes his stools are dark. Has continued to take his apixaban. No abdominal pains. Considering antibiotics for what appears to be a community-acquired pneumonia. Does however likely have underlying lung disease complicating this picture little bit. Has done well with Rocephin and azithromycin treated 7 months ago or so. I think with normal white count and minimal elevation CRP; this does not appear to be the degree of pneumonia that he has experienced before. Still need to consider the combination of factors above with underlying atrial fibrillation, COPD type appearance in his lungs though I do not think has an exacerbation here today, metoprolol maintenance and this anemia. Even nasal congestion as described might be playing a role in his fatigue. Given Rocephin and initiated on azithromycin. I did propose ambulating to see where pulse oximetry goes with consideration for admission but Mr. Dumas notes that he intends to go home regardless. See patient discharge plan for further discussion It would be a good idea to take daily or every couple of day weights. Based your chest x-ray it looks like you have a pneumonia. This certainly could be a reason for why you are short of breath when you are walking. However you also have had a drop in your hemoglobin. Nearly 4 g over 6 months or so. This can certainly lead to fatigue as well as shortness of breath as your hemoglobin gets lower. Would like you to follow-up for recheck in 10 - 14 days. This is also a chance for you to follow-up after this pneumonia as well. Return for persistent increasing shortness of breath, worsening cough, increasing fever. You had mentioned the congestion that you feel especially when it gets colder; you might benefit from longer-term use of nasal steroid sprays. These are available by prescription but also [id number]. I am sending prescriptions of antibiotics Augmentin and azithromycin into your pharmacy. Medical Records Medical records reviewed: Yes I reviewed the patient's medical records Lab Data Lab results reviewed: Yes I reviewed the patient's lab results Labs: Lab Results 08/01/25 08/01/25 Range/Units 10:28 11:13 WBC 7.04 (4.50-11.00) K/uL RBC 3.24 L (4.30-5.90) m/uL Hgb 9.3 L (13.5-17.5) gm/dL Hct 31.0 L (37.0-53.0) % MCV 96 (80-100) fL MCH 29 (26-34) pg MCHC 30 L (32-36) gm/dL RDW Coeff of Pratik 16.2 H (11.5-15.5) % Plt Count 375 (140-440) K/uL Neut % (Auto) 67.1 (42.0-72.0) % Lymph % (Auto) 19.7 L (20-44) % Faulkner % (Auto) 7.5 (0.0-11.0) % Eos % (Auto) 4.5 (0.0-7.0) % Baso % (Auto) 0.6 (0.0-3.0) % Neut # (Auto) 4.72 (1.7-7.0) K/uL Lymph # (Auto) 1.40 (0.90-2.90) K/uL Faulkner # (Auto) 0.50 (0.00-0.90) K/UL Eos # (Auto) 0.32 (0.00-0.50) K/uL Baso # (Auto) 0.04 (0.00-0.30) K/uL Abs Immat Gran (auto) 0.04 (0.00-0.30) K/uL Imm/Tot Granulo (auto) 0.6 % Sodium 137 (135-149) mmol/L Potassium 4.6 (3.6-5.1) mmol/L Chloride 107 (96-114) mmol/L Carbon Dioxide 25 (20-32) mmol/L Anion Gap 5 L (7-15) mEq/L BUN 21 (7-30) mg/dL Creatinine 1.2 (0.5-1.5) mg/dL Estimated Creat Clear 56.26 Estimated GFR 60 ml/min Glucose 102 (60-115) mg/dL Calcium 8.9 (8.4-10.6) mg/dL Total Bilirubin 0.7 (0.1-1.5) mg/dL Direct Bilirubin 0.3 (0.0-0.5) mg/dL AST 38 H (12-35) U/L ALT 16 (4-50) U/L Alkaline Phosphatase 95 (40-150) U/L C-Reactive Protein 1.5 H (0.5-1.0) mg/dL Total Protein 8.0 (6.0-8.3) g/dL Albumin 3.5 (3.3-5.0) g/dL SARS-CoV-2 (PCR) Negative SARS-CoV-2 (Negative) Influenza Type A (PCR) Negative PCR FLU A (Negative) Influenza Type B (PCR) Negative PCR FLU B (Negative) RSV (PCR) Negative PCR RSV (Negative) ECG Data Attestation: I personally reviewed and interpreted this ECG as follows: (Atrial fibrillation. Rate of 51.) Discharge Plan Discharge Clinical Impression: Pneumonia, Dyspnea, Anemia Patient Disposition: Home w/ Parent or Adult Condition: Stable Additional Instructions: It would be a good idea to take daily or every couple of day weights. Based your chest x-ray it looks like you have a pneumonia. This certainly could be a reason for why you are short of breath when you are walking. However you also have had a drop in your hemoglobin. Nearly 4 g over 6 months or so. This can certainly lead to fatigue as well as shortness of breath as your hemoglobin gets lower. Would like you to follow-up for recheck in 10 - 14 days. This is also a chance for you to follow-up after this pneumonia as well. Return for persistent increasing shortness of breath, worsening cough, increasing fever. You had mentioned the congestion that you feel especially when it gets colder; you might benefit from longer-term use of nasal steroid sprays. These are available by prescription but also [id number]. I am sending prescriptions of antibiotics Augmentin and azithromycin into your pharmacy. Prescriptions: New amoxicillin-pot clavulanate 875-125 mg tablet 1 tab PO BID 7 Days Qty: 14 0RF azithromycin 500 mg tablet See Rx Instructions .ROUTE .COMPLEX Qty: 3 0RF Rx Instructions: For 250 mg dose pack: take 500 mg today (day 1), then 250 mg for 4 days (days 2-5) No Action allopurinol 100 mg tablet 100 mg PO DAILY metoprolol succinate 50 mg Tablet Extended Release 24 Hr 50 mg PO DAILY Qty: 30 0RF Eliquis 5 mg Tablet 5 mg PO BID Qty: 60 0RF albuterol sulfate 90 mcg/actuation HFA aerosol inhaler inhalation umeclidinium-vilanterol [Anoro Ellipta] 62.5-25 mcg/actuation blister with device 1 ea inhalation DAILY Follow Up/Referrals: Provider,Not a Local [Non-Staff, Family Practice] Stand Alone Forms: MyHealth Info Instructions
--- NOTE | 2025-08-01 10:27 | CRLHL7_ITS ---
For Patients: As a result of the Cures Act, medical imaging exams and procedure reports are released immediately into your electronic medical record. You may view this report before your referring provider. If you have questions, please contact your health care provider. INDICATION: Increasing dyspnea COMPARISON: December 22, 2024 and June 30, 2019 TECHNIQUE: PA and lateral views of the chest were acquired FINDINGS: TUBES AND LINES: None. HEART AND MEDIASTINUM: Enlarged heart. Tortuous aorta appearance similar appearance to the prior study.. LUNGS AND PLEURAL SPACES: Hyperinflation probably due to COPD. Left basilar opacity. Part of this is chronic though the appearance is somewhat worsened suggesting acute on chronic disease.Right base opacity is probably partially pleural-parenchymal scarring though I suspect an acute infiltrate in this area as well. Small right effusion. OSSEOUS STRUCTURES: Age-appropriate appearance. No acute focal finding. IMPRESSION: 1. Enlarged heart. Tortuous aorta. Similar appearance to the prior study. 2. Background pattern likely due to COPD. 3. Left basilar opacity. Part of this is probably chronic though I suspect acute on chronic disease. Suspect pneumonia. 4. Right basilar opacity probably due to pleural and parenchymal scarring. An acute infiltrate is possible at the right base when compared to the prior study. Minimal right pleural fluid or right pleural thickening. Dictated by Ralph Martinez MD @ 08/01/2025 10:49:49 AM (Electronically Signed)
[2025-08-01 11:20] LABS: Hematocrit* 31.0 % (37.0-53.0); Hemoglobin* 9.3 gm/dL (13.5-17.5); Immature Granulocytes Abs Auto 0.04 K/uL (0.00-0.30); Immature Granulocytes Pct Auto 0.6 %; Mean Corpuscular HGB Conc 30 gm/dL (32-36); Mean Corpuscular Hemoglobin 29 pg (26-34); Mean Corpuscular Volume 96 fL (80-100); RDW Coefficient of Variation % 16.2 % (11.5-15.5); Red Blood Count* 3.24 m/uL (4.30-5.90); White Blood Count* 7.04 K/uL (4.50-11.00)
[2025-08-01 11:25] LABS: PCR FLU A Negative PCR FLU A (Negative); PCR FLU B Negative PCR FLU B (Negative); PCR RSV Negative PCR RSV (Negative); SARS PCR* Negative SARS-CoV-2 (Negative)
[2025-08-01 11:38] LABS: Lymphocytes Absolute Auto 1.40 K/uL (0.90-2.90); Slide Review Reflex No
[2025-08-01 11:39] LABS: Albumin* 3.5 g/dL (3.3-5.0); Chloride* 107 mmol/L (96-114); Sodium* 137 mmol/L (135-149)
[2025-08-01 11:40] LABS: Potassium* 4.6 mmol/L (3.6-5.1)
[2025-08-01 11:42] LABS: Alanine Aminotransferase* 16 U/L (4-50); Alkaline Phosphatase* 95 U/L (40-150); Anion Gap 5 mEq/L (7-15); Aspartate Amino Transferase* 38 U/L (12-35); Bilirubin Direct* 0.3 mg/dL (0.0-0.5); Bilirubin Total* 0.7 mg/dL (0.1-1.5); Blood Urea Nitrogen* 21 mg/dL (7-30); Carbon Dioxide* 25 mmol/L (20-32); Creatinine* 1.2 mg/dL (0.5-1.5); Est. Creatinine Clearance* 56.26; Estimated Glomerular Filt Rate 60 ml/min
[2025-08-01 11:43] LABS: Calcium* 8.9 mg/dL (8.4-10.6); Glucose* 102 mg/dL (60-115); Total Protein* 8.0 g/dL (6.0-8.3)
[2025-08-01] MEDS: cefTRIAXone 2 GM in 0.9 % SODIUM CHLORIDE Mini-bag 100 ML IVPB (12:58)
[2025-08-01] MEDS: AZITHROMYCIN 250 MG TABLET 500 MG PO (13:02)
== END 2025-08-01 13:37 | disposition home or self-care (01) ==
PROVIDERS: Emergency Provider Family Medicine; PCP Student in an Organized Health Care Education/Training Program
DX: J18.9 Pneumonia, unspecified organism (principal); D64.9 Anemia, unspecified; Z87.891 Personal history of nicotine dependence
CPT/HCPCS: 36415; 71046; 80048; 80076; 85025; 86140; 87631; 93005; 94761; 96365; 99284; 99285; A9270; J0696

== ENCOUNTER 2025-09-21 11:22 | Outpatient (CLI) | payer MEDICARE, SELFPAY ==
--- NOTE | 2025-09-21 13:04 | P.ANES_ITS ---
Anesthesia Charges Start Date/Time Anesthesia Start Date: 09/21/25 Anesthesia Start Time: 12:35 Stop Date/Time Anesthesia Stop Date: 09/21/25 Anesthesia Stop Time: 13:30 Summary Extremes of Age - Over 70 or under 1: MDA Coding CPT Codes CPT Codes: ANES UPR LWR GI NDSC PX - 95751 ([id number]) P3 - PATIENT W/SEVERE SYS DISEASE, QK - CELL ASSEMBLY PINNER 2-4 CNCRNT ANES PROC, QX - LEAK GANG SUPERVISOR SVC W/ MD MED DIRECTION Additional Codes: Summary - Extremes of Age - Over 70 or under 1: MDA ([id number])
--- NOTE | 2025-09-21 13:04 | W.ANESCHARGE ---
Anesthesia Charges Start Date/Time Anesthesia Start Date: 09/21/25 Anesthesia Start Time: 12:35 Stop Date/Time Anesthesia Stop Date: 09/21/25 Anesthesia Stop Time: 13:30 Summary Extremes of Age - Over 70 or under 1: MDA Coding CPT Codes CPT Codes: ANES UPR LWR GI NDSC PX - 49745 ([id number]) P3 - PATIENT W/SEVERE SYS DISEASE, QK - OFFICER LIEUTENANT 2-4 CNCRNT ANES PROC, QX - BEAUTY SCHOOL INSTRUCTOR SVC W/ MD MED DIRECTION Additional Codes: Summary - Extremes of Age - Over 70 or under 1: MDA ([id number])
--- NOTE | 2025-09-21 13:35 | P.ANES_ITS ---
Anesthesia Charges Start Date/Time Anesthesia Start Date: 09/21/25 Anesthesia Start Time: 12:35 Stop Date/Time Anesthesia Stop Date: 09/21/25 Anesthesia Stop Time: 13:30 Summary Extremes of Age - Over 70 or under 1: COMPUTER PROGRAMMER CHIEF Coding CPT Codes CPT Codes: ANES UPR LWR GI NDSC PX - 69628 ([id number]) P3 - PATIENT W/SEVERE SYS DISEASE, QK - HOME CARE LIAISON 2-4 CNCRNT ANES PROC, QX - COMPUTER PROGRAMMER CHIEF SVC W/ MD MED DIRECTION Additional Codes: Summary - Extremes of Age - Over 70 or under 1: COMPUTER PROGRAMMER CHIEF ([id number])
--- NOTE | 2025-09-21 13:35 | W.ANESCHARGE ---
Anesthesia Charges Start Date/Time Anesthesia Start Date: 09/21/25 Anesthesia Start Time: 12:35 Stop Date/Time Anesthesia Stop Date: 09/21/25 Anesthesia Stop Time: 13:30 Summary Extremes of Age - Over 70 or under 1: VOLLEYBALL ASSEMBLER Coding CPT Codes CPT Codes: ANES UPR LWR GI NDSC PX - 89237 ([id number]) P3 - PATIENT W/SEVERE SYS DISEASE, QK - COGNOS ANALYST 2-4 CNCRNT ANES PROC, QX - VOLLEYBALL ASSEMBLER SVC W/ MD MED DIRECTION Additional Codes: Summary - Extremes of Age - Over 70 or under 1: VOLLEYBALL ASSEMBLER ([id number])
== END 2025-09-21 11:23 | disposition home or self-care (01) ==
LOC: OP CLINIC 11:23
PROVIDERS: PCP Student in an Organized Health Care Education/Training Program; Visit Provider Internal Medicine Gastroenterology
DX: D50.9 Iron deficiency anemia, unspecified (principal); D12.3 Benign neoplasm of transverse colon; D12.5 Benign neoplasm of sigmoid colon; K57.30 Diverticulosis of large intestine without perforation or abscess without bleeding; K31.89 Other diseases of stomach and duodenum; K22.89 Other specified disease of esophagus
CPT/HCPCS: 00813; 43239; 45385; 99100; J2250; J2371; J2704; J3490